=== PATIENT | female | born 1990 | race Caucasian/White ===

== ENCOUNTER 2018-07-05 19:22 | Inpatient (IN) | payer MEDICAID ==
[~2018-07-05] VITALS: Ht 160 cm; Wt 173.0 kg
[2018-07-05] MEDS ORDERED: ALBUTEROL 0.5% (NEB) 2.5 MG/0.5 ML AMP INH STA (19:49)
[2018-07-05] MEDS ORDERED: IBUPROFEN 600 MG TAB PO ONE (20:00)
--- NOTE | 2018-07-05 20:56 | ERD ---
ER Documentation Chief Complaint Chief Complaint SOB, USES O2-RAN OUT, FEVER, COUGH, CONGESTION, BODY ACHES HPI 28-year-old morbidly obese woman with a history of obstructive sleep apnea and home oxygen use presents with recent cough, tactile fever, nasal congestion, rhinorrhea, sore throat, body aches. She denies abdominal pain, no chest pain, no vomiting or diarrhea. Patient denies recent antibiotic use. ROS All systems reviewed and are negative except as per history of present illness. Allergies Allergies: Coded Allergies: Penicillins (Verified Allergy, Unknown, RASH, 05/11/08) PMhx/Soc Morbid obesity, CHF, obstructive sleep apnea, prediabetes FmHx Family History: diabetes Physical Exam Vitals Vital Signs Date Temp Pulse Resp B/P (MAP) Pulse Ox O2 O2 Flow FiO2 Time Delivery Rate 07/05/18 111 96 40 23:23 07/05/18 100.9 21:03 07/05/18 Nasal 3 20:49 Cannula 07/05/18 Nasal 2.0 20:19 Cannula 07/05/18 99.0 87 22 105/78 98 Nasal 2.0 20:19 (87) Cannula 07/05/18 2.0 20:09 07/05/18 108 22 91 Nasal 2.0 20:09 Cannula 07/05/18 101.6 121 26 127/61 91 19:27 (83) Physical Exam Const: No acute distress, febrile Head: Atraumatic Eyes: Normal Conjunctiva ENT: Normal External Ears, Nose and Mouth. Neck: Full range of motion. No meningismus. Resp: Poor breath sounds bilaterally, no wheezing or stridor Cardio: Regular rate and rhythm, no murmurs Abd: Soft, non tender, non distended. Skin: No petechiae or rashes Back: No midline or flank tenderness Ext: No cyanosis, or edema Neur: Awake and alert x3, no focal deficits or facial asymmetry Psych: Normal Mood and Affect Result Diagram: 07/05/18202907/05/182029 Results 24 hrs Laboratory Tests Test 07/05/18 19:49 07/05/18 20:30 07/05/18 20:41 Blood Gas Specimen Source Blood arterial Arterial Blood Date 07/05/2018 8:55:14 PM Drawn Arterial Blood pH 7.462 (Temp corrected) Arterial Blood pCO2 43.9 mmhg (Temp correct) Arterial Blood pO2 54.0 mmHG (Temp corrected) Arterial Blood HCO3 30.7 mmol/L Arterial Blood Base 6.1 mmol/L Excess Arterial Blood 88.6 mmHG Oxygen Saturation Haroon Test ACCEPTAB Arterial Blood Gas Right Radial Puncture Site Arterial 1.0 % Blood Carboxyhemoglobin Arterial Blood 0.2 % Methemoglobin Blood Gas A-a O2 108.3 mmHg Differential Oxyhemoglobin Percent 87.5 % Blood Gas Temperature 37.0 C Blood Gas Modality NASAL CANNULA FiO2 30.0 % Blood Gas Critical Value Garret PADILLA MD Read Back Blood Gas Notified Whom MG Blood Gas Notified Time 07/05/2018 9:03:00 PM White Blood Count 39.3 10^3/ul Red Blood Count 5.12 10^6/ul Hemoglobin 14.0 g/dl Hematocrit 43.6 % Mean Corpuscular Volume 85.2 fl Mean Corpuscular 27.3 pg Hemoglobin Mean Corpuscular 32.1 g/dl Hemoglobin Concent Red Cell Distribution 13.6 % Width Platelet Count 310 10^3/UL Mean Platelet Volume 10.3 fl Immature Granulocytes % 2.500 % Segmented Neutrophils 55 % % (Manual) Band Neutrophils % 32 % (Manual) Lymphocytes % (Manual) 2 % Reactive Lymphocytes 2 % % (Manual) Monocytes % (Manual) 7 % Basophils % (Manual) 1 % Myelocytes % (Manual) 1 % Nucleated Red Blood Cells 0.1 /100WBC % Immature Granulocytes # 1.000 10^3/ul Neutrophils # (Manual) 26.5 10^3/ul Band Neutrophils # 12.5 10^3/ul Lymphocytes (Manual) 0.7 10^3/ul Reactive Lymphocytes # 0.7 10^3/ul Monocytes # (Manual) 2.7 10^3/ul Basophils # (Manual) 0.3 10^3/ul Myelocytes # 0.3 10^3/ul Platelet Estimate NORMAL Giant Platelets 2 % Polychromasia 1+ Anisocytosis 1+ Microcytosis 1+ Ovalocytes 1+ Prothrombin Time 15.1 Sec Prothrombin Time Ratio 1.2 INR International 1.17 Normalized Ratio Activated 36.3 Sec Partial Thromboplast Time Sodium Level 137 mmol/L Potassium Level 3.6 mmol/L Chloride Level 96 mmol/L Carbon Dioxide Level 30 mmol/L Anion Gap 11 Blood Urea Nitrogen 8 mg/dl Creatinine 0.56 mg/dl Est Glomerular Filtrat > 60 mL/min Rate mL/min Glucose Level 138 mg/dl Calcium Level 8.1 mg/dl Total Bilirubin 0.5 mg/dl Direct Bilirubin 0.00 mg/dl Indirect Bilirubin 0.5 mg/dl Aspartate Amino 23 IU/L Transf (AST/SGOT) Alanine 9 IU/L Aminotransferase (ALT/SGP T) Alkaline Phosphatase 101 IU/L Troponin I 0.021 ng/ml Total Protein 8.5 g/dl Albumin 3.7 g/dl Globulin 4.80 g/dl Albumin/Globulin Ratio 0.77 Lipase < 10 U/L POC Venous Lactate 2.0 mmol/L Current Medications Medications Dose Sig/Sonal Start Time Status Last (Trade) Ordered Route PRN Stop Time Admin Dose Reason Admin Ibuprofen 600 mg ONCE ONCE 07/05/18 DC 07/05/18 (Motrin) PO 20:00 21:03 07/05/18 20:01 Albuterol 10 mg ONCE STAT 07/05/18 DC 07/05/18 (Proventil INH 19:49 20:09 0.5% (Neb)) 07/05/18 19:52 Ceftriaxone 50 ml @ ONCE ONCE 07/05/18 DC 07/05/18 Sodium 100 mls/hr IVPB 21:00 21:35 07/05/18 21:29 Azithromycin 250 ml @ ONCE ONCE 07/05/18 DC 07/05/18 250 mls/hr IVPB 21:00 22:18 07/05/18 21:59 Sodium 1,000 ml @ Q1H ONCE 07/05/18 DC 07/05/18 Chloride 1,000 mls/hr IV 21:00 21:03 07/05/18 21:59 Sodium 1,000 ml @ Q10H IV 07/05/18 UNV Chloride 100 mls/hr 23:22 07/06/18 23:00 IV Flush 3 ml PER 07/05/18 UNV (NS 3 ml) PROTOCOL IV 23:30 Ondansetron 4 mg Q6H PRN 07/05/18 UNV HCl (Zofran IV NAUSEA 23:30 Inj) AND/OR VOMITING 650 mg Q6H PRN 07/05/18 UNV Acetaminophen PO PAIN 23:30 (Tylenol LEVEL 1-3 OR Tab) FEVER 1 tab Q6H PRN 07/05/18 UNV Acetaminophen PO PAIN 23:30 / LEVEL 4-6 Hydrocodone Bitart (Timber (5/325)) 2 tab Q6H PRN 07/05/18 UNV Acetaminophen PO PAIN 23:30 / LEVEL 7-10 Hydrocodone Bitart (Timber (5/325)) Albuterol/ 3 ml Q2H RESP 07/05/18 UNV Ipratropium THERAPY PRN 23:30 (Duoneb) HHN SHORTNESS OF BREATH Procedures/MDM IV line was established patient was placed on cardiac rehab nurse rhythm strip revealed a sinus tachycardia at 120 bpm with upright P and T waves. Patient was febrile, blood and urine cultures have been ordered results are pending I will follow-up. EKG was performed, read by me revealed a sinus tachycardia at 113 bpm, right axis, narrow QRS complex, no concerning ST elevations or depressions noted. 1 view chest x-ray performed, read by me revealed a right middle and lower lobe infiltrate and congestion bilaterally and cardiomegaly, no pneumothorax, no air under the diaphragm. I administered 1 L normal saline IV, albuterol 10 mg via nebulizer, and ibuprofen 600 mg p.o. for fever. Patient has questionable history of congestive heart failure and is morbidly obese she will not be receiving the full 30 cc/kg IV fluids because I am concerned for precipitating pulmonary edema. Given the pneumonia I administered ceftriaxone 2 g IV and azithromycin 500 mg IV x1. CBC revealed leukocytosis of 39, electrolytes were unremarkable, liver function tests normal, lactic acid elevated at 2. ABG performed, read by me revealed a pH of 7.46, PCO2 44, PO2 54. Normal. Patient's infectious symptoms have not stabilized and the patient is at risk of rapid decompensation. The patient will be admitted for careful hydration, antibiotic therapy, and infectious source control. SEVERE SEPSIS CRITERIA: Infectious source: Pulmonary End organ damage indicated by: [Lactate > 2.0 mmol/L Hypotension (SBP < 90 or >40 mmHG drop or MAP < 65) Acute Resp Failure (sat < 92% w/o oxygen) SEPSIS MANAGEMENT Time of recognition of sepsis: Upon arrival. Time of recognition of severe sepsis: No severe sepsis at this time. Time of recognition of septic shock: No septic shock at this time. 3 HOUR BUNDLE Blood cultures x 2 before broad-spectrum antibiotics: Yes 30 ml/kg NS bolus completed Initial lactate 2.0 Repeat lactate pending SEPTIC SHOCK ASSESSMENT: No lactic acid > 4.0 No persistent hypotension (SBP < 90 or 40 mmHg drop, MAP < 65) despite 30 mL/kg IV fluid bolus VOLUME REASSESSMENT FOR SEPTIC SHOCK: Reevaluation Time: 2049 Temp 99.9, pulse 100 bpm, blood pressure 140/90, oxygen saturation 98% Heart regular rate & rhythm Lungs poor breath sounds bilaterally, crackles in both lung wong, no wheezing or stridor Skin warm & dry Cap Refill less than 2 seconds Peripheral pulses radially present PERSISTENT HYPOTENSION TREATMENT: Comfort care no Central line not Required Vasopressor started not required I considered further perfusion assessment with CVP measurement, SCVO2, bedside ultrasound volume assessment, passive leg raise, trial of further fluid bolus. And proceeded with 30 ml/kg fluid bolus of NSS, broad spectrum antibiotics, and admission. CRITICAL CARE: Critical care time 35 minutes, this was time separate from other billable procedures. Emergent fluid management while maintaining close respiratory support. Provision of immediate and broad-spectrum antibiotic therapy. Simultaneous assessment for possible sources in order to direct targeted therapy. Consideration for invasive and chemical support to prevent cardiopulmonary collapse. Critical care time is independent of procedures performed. Patient was placed on BiPAP Accepting Care Team: Current data and ongoing care discussed. Time: Time of admission Primary Provider: Hospitalist Consulting: Infectious disease Outstanding Data: none Departure Diagnosis: Primary Impression: Bilateral pneumonia Pneumonia type: due to unspecified organism Lung location: lower lobe of lung Qualified Codes: J18.1 - Lobar pneumonia, unspecified organism Additional Impressions: Sepsis Sepsis type: sepsis due to unspecified organism Qualified Codes: A41.9 - Sepsis, unspecified organism Obstructive sleep apnea Condition: Serious LANG PADILLA MD Jul 05, 2018 20:56
[2018-07-05] MEDS ORDERED: SOD CHLORIDE 0.9% 1,000 ML IV ONE (21:00)
[2018-07-05] MEDS ORDERED: CEFTRIAXONE 2 GM/50 ML (PMX) 50 ML IVPB ONE (21:00)
[2018-07-05] MEDS ORDERED: AZITHROMYCIN 500MG/NS (PMX) 250 ML IVPB ONE (21:00)
[2018-07-05] MEDS: SOD CHLORIDE 0.9% 1,000 ML IV SCH (23:22)
--- NOTE | 2018-07-05 23:24 | HP ---
Date/Time of Note Date/Time of Note DATE: 07/05/18 TIME: 23:24 Assessment/Plan Lines/Catheters IV [facility]ter [facility] (from [facility]): Saline Lock Assessment/Plan Assessment/Plan 1. Sepsis secondary to bilateral community-acquired pneumonia: Patient with significant leukocytosis with bandemia in the mitral cells -IV antibiotic -IV fluid -Follow-up blood culture and respiratory culture -Supplemental oxygen, bronchodilators -If leukocytosis does not improve or worsens with IV antibiotic, consider hematology consult 2. ALAN -Supplemental oxygen. CPAP/BiPAP as needed 3. Morbid obesity with a BMI of almost 68: Weight reduction advised HPI/ROS Admit Date/Time Admit Date/Time Hx of Present Illness This is a 28-year-old morbidly obese female with a BMI of 68 with a history of ALAN on home oxygen who presented to ER complaining of shortness of breath. Symptom has been progressively getting worse for the past few days. She also reported a cough. Denies chest pain. Patient uses oxygen at home, but she ran out recently. When presented to ER, she was found to be febrile with temperature of 1.6, WBC 39,000. Chest x-ray shows Bibasilar infiltrates concerning for multifocal pneumonia. Lactic acid only 1.3. ABG shows a pH of 7.4, PO2 of only 54. PMH/Family/Social Past Medical History Coded Allergies: Penicillins (Verified Allergy, Unknown, RASH, 05/11/08) Social History Smoking Status: Never smoker Exam/Review of Systems Vital Signs Vitals Vital Signs Date Temp Pulse Resp B/P (MAP) Pulse Ox O2 O2 Flow FiO2 Time Delivery Rate 07/05/18 100.9 21:03 07/05/18 Nasal 3 20:49 Cannula 07/05/18 87 22 105/78 98 20:19 (87) Results Result Diagram: 07/05/18202907/05/182029 Results 24 hrs Laboratory Tests Test 07/05/18 19:49 07/05/18 20:30 07/05/18 20:41 Blood Gas Specimen Blood arterial Source Arterial Blood Date 07/05/2018 8:55:14 PM Drawn Arterial Blood pH 7.462 H (Temp corrected) Arterial Blood pCO2 43.9 (Temp correct) Arterial Blood pO2 54.0 *L (Temp corrected) Arterial Blood HCO3 30.7 H Arterial Blood Base 6.1 H Excess Arterial Blood 88.6 L Oxygen Saturation Haroon Test ACCEPTAB Arterial Blood Gas Right Radial Puncture Site Arterial 1.0 Blood Carboxyhemoglobin Arterial Blood 0.2 Methemoglobin Blood Gas A-a O2 108.3 H Differential Oxyhemoglobin Percent 87.5 L Blood Gas Temperature 37.0 Blood Gas Modality NASAL CANNULA FiO2 30.0 Blood Gas Critical Value Garret PADILLA MD Read Back Blood Gas Notified Whom MG Blood Gas Notified Time 07/05/2018 9:03:00 PM White Blood Count 39.3 H Red Blood Count 5.12 Hemoglobin 14.0 Hematocrit 43.6 Mean Corpuscular Volume 85.2 Mean Corpuscular 27.3 L Hemoglobin Mean Corpuscular 32.1 Hemoglobin Concent Red Cell Distribution 13.6 Width Platelet Count 310 Mean Platelet Volume 10.3 Immature Granulocytes % 2.500 H Segmented Neutrophils 55 % (Manual) Band Neutrophils % 32 H (Manual) Lymphocytes % (Manual) 2 L Reactive Lymphocytes 2 H % (Manual) Monocytes % (Manual) 7 Basophils % (Manual) 1 Myelocytes % (Manual) 1 H Nucleated Red Blood Cells 0.1 H % Immature Granulocytes # 1.000 H Neutrophils # (Manual) 26.5 H Band Neutrophils # 12.5 H Lymphocytes (Manual) 0.7 L Reactive Lymphocytes # 0.7 H Monocytes # (Manual) 2.7 H Basophils # (Manual) 0.3 H Myelocytes # 0.3 H Platelet Estimate NORMAL Giant Platelets 2 H Polychromasia 1+ Anisocytosis 1+ Microcytosis 1+ Ovalocytes 1+ Prothrombin Time 15.1 H Prothrombin Time Ratio 1.2 INR International 1.17 Normalized Ratio Activated 36.3 H Partial Thromboplast Time Sodium Level 137 Potassium Level 3.6 Chloride Level 96 L Carbon Dioxide Level 30 Anion Gap 11 Blood Urea Nitrogen 8 Creatinine 0.56 Est Glomerular Filtrat > 60 Rate mL/min Glucose Level 138 Calcium Level 8.1 L Total Bilirubin 0.5 Direct Bilirubin 0.00 Indirect Bilirubin 0.5 Aspartate Amino 23 Transf (AST/SGOT) Alanine 9 L Aminotransferase (ALT/SGP T) Alkaline Phosphatase 101 Troponin I 0.021 Total Protein 8.5 H Albumin 3.7 Globulin 4.80 H Albumin/Globulin Ratio 0.77 Lipase < 10 L POC Venous Lactate 2.0 DARYA ADAMS MD Jul 05, 2018 23:24
[2018-07-05] MEDS ORDERED: NACL 0.9% 3 ML SYG IV SCH (23:30)
[2018-07-05] MEDS ORDERED: HYDROCODONE/APAP (5/325) TAB PO PRN ×2 (23:30)
[2018-07-05] MEDS ORDERED: ONDANSETRON 4 MG INJ IV PRN (23:30)
[2018-07-05] MEDS ORDERED: ALBUTEROL/IPRATROPIUM (NEB) 3 ML AMP HHN PRN (23:30)
[2018-07-06] VITALS (19 sets, daily range): BP systolic 97–128; BP diastolic 52–65; PULSE 81–110; RESP 18–24; Ht 160 cm; Wt 173.0 kg
--- NOTE | 2018-07-06 01:19 | NUR ---
NOTES: FOUND PT EATING SOLID. EDUCATED PT ON ASPIRATION. PT AGREED TO STOP EATING. PLACED PT ON NONREBREATHER MASK. WILL WAIT AT LATER TIME TO GO BACK ON BIPAP. RN BY BEDSIDE. SAT >92
--- NOTE | 2018-07-06 01:30 | NUR ---
RECEIVED THE PT FROM ER PT IS AAOX4 LUNGS SOUND WHEEZY AND CRACKLES NOTED PT ON NONBREATHING MASK O2 SAT98% pt vital sign stable no acute distress noted md order carry out continue monitor call light with inreach
--- NOTE | 2018-07-06 03:30 | NUR ---
MEDICATED WITH PAIN MEDS FOR BACK PAIN EFFECTIVE
[2018-07-06] MEDS ORDERED: VANCOMYCIN IV PER PHARMACY XX SCH (08:30)
[2018-07-06] MEDS ORDERED: MEROPENEM 500MG/50 ML (PMX) 50 ML IVPB SCH (09:00)
[2018-07-06] MEDS ORDERED: MEROPENEM 1 GM/50ML(PMX) 50 ML IVPB SCH ×2 (09:00→14:00)
--- NOTE | 2018-07-06 10:16 | NUR ---
RT. ATTEMPT TO SWITCH MASK , PT DIDNT WANT TO CHANGE MASK
--- NOTE | 2018-07-06 10:27 | NUR ---
VANCO PER RX PROTOCOL: DAY #1 S/O: 28 YO FEMALE W/ SEPSIS 2/2 BILATERAL CAP TMAX = 99.2 SCR/BUN = 1.1/14 WBC = 59.3 A/P: VANCO 1.75GM Q 12HR WITH TR LEVEL ON 4TH DOSE TO CHECK CLEARANCE. WILL CONTINUE TO FOLLOW.
[2018-07-06] MEDS: SOD CHLORIDE 0.9% 1,000 ML IV SCH ×2 (11:32→20:44)
[2018-07-06] MEDS: VANCOMYCIN 1.75 GM in SOD CHLORIDE 0.9% 500 ML IVPB SCH (12:49)
[2018-07-06] MEDS: MEROPENEM 1 GM/50ML(PMX) 50 ML IVPB SCH ×2 (16:16→22:01)
--- NOTE | 2018-07-06 17:12 | PN ---
Date/Time of Note Date/Time of Note DATE: 07/06/18 TIME: 17:06 Assessment/Plan VTE Prophylaxis Risk score (from Ns)>0 risk: 1 SCD applied (from Ns): No SCD contraindicated: low risk/ambulating Pharmacological prophylaxis: LMWH Lines/Catheters IV [facility] ([facility] Peripheral IV Assessment/Plan Hospital Course Assessment and plan 1. Acute hypoxic respiratory failure. mod stable titrate O2 2. Sirs/suspected sepsis due to pneumonia 3. Community-acquired pneumonia vs viral illness. Continue supportive care. Lymphocytic predominance, ID/pulmonary consult as needed; r/o influenza 4. Morbid obesity needs weight management outpatient assistance 5. ALAN/ OHS 6. Chronic respiratory failure on home O2? Subjective: Awake alert follows commands. Admitted with nonproductive cough earaches possible sore throat. Possible cold cough ill contacts. No recent travel calf pain. No pleurisy. Objective: Vital signs stable sinus rhythm/sinus tach Physical exam No pallor JVD appreciated. Thick neck Regular no murmur gallop Clear no tachypnea diminished at bases Bs dimin nt nd no rRG; obese Mild edema/no Homans Exam/Review of Systems Vital Signs Vitals Vital Signs Date Temp Pulse Resp B/P (MAP) Pulse Ox O2 O2 Flow FiO2 Time Delivery Rate 07/06/18 91 16:12 07/06/18 98.0 22 97/52 (67) 98 BIPAP 15:18 07/06/18 60 15:04 07/06/18 4.0 08:32 Intake and Output 07/05/18 07/05/18 07/06/18 1414:59 22:59 06:59 IntakeIntake Total 300 ml BalanceBalance 300 ml KAYLIE LARA MD Jul 06, 2018 17:12
[2018-07-06] MEDS ORDERED: GUAIFENESIN/DM 5ML CUP PO PRN (17:30)
[2018-07-06] MEDS ORDERED: CEFTRIAXONE 2 GM/50 ML (PMX) 50 ML IVPB SCH (17:30)
[2018-07-06] MEDS ORDERED: ALBUTEROL 0.083% (NEB) 2.5 MG/3 ML AMP HHN PRN (17:30)
[2018-07-06] MEDS: POTASSIUM CHLORIDE 20 MEQ POWDER FOR ORAL SOLN PO SCH (17:46)
[2018-07-06] MEDS: HYDROCODONE/APAP (10/325) TAB PO PRN ×2 (17:51→22:18)
[2018-07-06] MEDS ORDERED: MAGNESIUM SULFATE 4 GM/100 ML 100 ML IVPB ONE (18:00)
--- NOTE | 2018-07-06 18:48 | NUR ---
EOSS Patient is alert and oriented to person, place, and time. Shortness of breath on exertion. Patient was on bipap for most of the day and on nasal cannula 4-6L during meal times. Able to walk with 1 person stand-by assist with steady gait. IV antibiotics given. Pending on Magnesium 4gm to be delivered by pharmacy at this time. Will endorse to cnc machinist 2nd shift if it has not arrived during shift. Patient may use high flow rate nasal cannula per MD order. Patient will have CT angiogram tomorrow. No BM during shift. will endorse to night nurse to collect stool for c.diff. All needs attended to and met. Kept comfortable. Call light within reach. Addendum: 07/06/18 at 1859 by CAROLYN RUIZ RN infusing magnesium IVPB now
[2018-07-06] MEDS: OSELTAMIVIR 75 MG CAP PO SCH ×2 (20:43→22:01)
[2018-07-06] MEDS: AZITHROMYCIN 250 MG TAB PO SCH (20:44)
--- NOTE | 2018-07-06 23:06 | NUR ---
RN NOTES: PATIENT HAS NAUSEA AND VOMITING OF CLEAR SMALL FLUID APPARENTLY DUE TO GUTIÉRREZ FLAVORED JELL-O. EXPLAINED (AGAIN) THE POSSIBLE SIDE EFFECTS OF HER MEDICATIONS SUCH PAIN MEDS AND ANTIBIOTICS, VERBALIZED UNDERSTANDING. REFUSED TO PUT SIDE RAILS UP ON HER RIGHT SIDE, EXPLAINED REGARDING FALL PRECAUTION BUT SHE SAID SHE DOESN'T FEEL COMFORTABLE , AND THAT SHE NEEDS HER RIGHT FOOT DOWN. WILL CONTINE TO DO FREQUENT ROUNDING ON THIS PATIENT.
[2018-07-07] VITALS (34 sets, daily range): BP systolic 50–133; BP diastolic 23–89; PULSE 68–104; RESP 16–29
[2018-07-07] MEDS: VANCOMYCIN 1.75 GM in SOD CHLORIDE 0.9% 500 ML IVPB SCH ×2 (00:24→12:23)
[2018-07-07] MEDS: MEROPENEM 1 GM/50ML(PMX) 50 ML IVPB SCH ×3 (05:19→21:14)
--- NOTE | 2018-07-07 07:33 | NUR ---
EOSS: PATIENT REMAINED ON NRB , OXYGEN AT 8-10LPM, SATURATING 99-100%. DESATURATES WHEN OFF OXYGEN LOW 80%. PLACED ON BED ALARM. TWO SIDE RAILS UP.
[2018-07-07] MEDS: AZITHROMYCIN 250 MG TAB PO SCH (08:47)
[2018-07-07] MEDS: OSELTAMIVIR 75 MG CAP PO SCH ×2 (08:47→21:13)
[2018-07-07] MEDS: POTASSIUM CHLORIDE 20 MEQ POWDER FOR ORAL SOLN PO SCH (08:48)
[2018-07-07] MEDS ORDERED: ENOXAPARIN 40 MG/0.4 ML SYG SC SCH (09:00)
--- NOTE | 2018-07-07 10:50 | NUR ---
Notified by RT regarding abnormal ABG results. Relayed results to Anthony VENTURA. No orders received.
--- NOTE | 2018-07-07 12:37 | PN ---
Date/Time of Note Date/Time of Note DATE: 07/07/18 TIME: 12:35 Assessment/Plan VTE Prophylaxis Risk score (from Ns)>0 risk: 1 SCD applied (from Ns): No SCD contraindicated: other Pharmacological prophylaxis: LMWH Lines/Catheters IV Catheter Type (from [facility]): Peripheral IV Assessment/Plan Hospital Course SUBJECTIVE: The patient was somnolent throughout the day as per the RN. Currently on BiPAP. OBJECTIVE: Physical Exam General: Morbidly obese, 28 year-old female lying in bed. HEENT: Normocephalic, atraumatic. Eyes: Anicteric sclerae, conjunctivae clear. E NT: Nasal septum midline, oral mucosa is dry. Neck: Obese. Respiratory: Bilaterally diminished breath sounds. On BiPAP. Cardiovascular: S1, S2 heard. Regular rate and rhythm. Abdomen: Soft, nontender, and nondistended. Bowel sounds positive in all 4 quadrants. Genitourinary: Deferred. Extremities: No cyanosis, no clubbing. Peripheral pulses palpable. Neurologic: The patient is somnolent. Skin: Normal skin turgor. No skin rashes. Labs & Vitals per chart ASSESSMENT & PLAN 28-year-old female with comorbidities including morbid obesity with a BMI of almost 68, obstructive sleep apnea, and chronic hypoxia on home O2, who came to the emergency room with a chief complaint of dyspnea, congestion, fevers, cough, and body aches, who was found to have leukocytosis, febrile illness, and bandemia, who was admitted to inpatient setting for further treatment and evaluation. 1. Sepsis with leukocytosis, febrile illness, and bandemia, upon admission with suspected pneumonia. -Continue antimicrobials. -Send influenza A and B, urine studies, and stool studies. -Obtain ID consult. 2. Acute on chronic respiratory failure. -Hypoxic and hypercapnic. -Continue inhaled bronchodilators. -Noninvasive positive pressure ventilation as indicated. -Unable to obtain CT pulmonary angiogram or lung VQ scan because of morbid obesity. -The patient on therapeutic anticoagulation for possible underlying PE. -Obtain pulmonary consult. 3. Morbid obesity. -BMI almost 68 kg/m. 4. Fluids, electrolytes, and nutrition. -Regular diet if able to tolerate oral intake. 5. DVT prophylaxis. -On therapeutic Lovenox. 6. Plan. -Give a single dose of Narcan since the patient was getting high-dose of oral opioids. -Obtain 2D echocardiogram to the left ventricular ejection fraction and to evaluate for any pulmonary hypertension. -Repeat arterial blood gases. If ABG is not getting better, the patient needs to be transferred to intensive care unit for prolonged intubation mechanical ventilation. -Obtain ID and pulmonary consult. On 07/07/2018, the patient was moved to the intensive care unit because of worsening ABGs. The plan was to intubate the patient. The patient remained lethargic until the ER physician walked into the patient's room when she woke up and refused to be intubated. I had a conversation with the patient's sister Shira over the phone who agreed to come and talk to the patient. Shira visited the patient within 30 minutes and talked to the patient. Finally the patient agreed to be on a BiPAP therapy and have a repeat ABG done in another 2 hours and if the repeat ABG remains the same or get worse she agreed to be intubated. The patient was seen in collaboration with Dr. Oconnor. Result Diagram: 07/07/18 0540 07/07/18 0540 Results 24hrs Laboratory Tests Test 07/07/18 05:39 07/07/18 05:40 07/07/18 07:00 Serum HCG, Qualitative NEGATIVE White Blood Count 46.9 #H Red Blood Count 5.01 Hemoglobin 13.7 Hematocrit 44.8 Mean Corpuscular Volume 89.4 Mean Corpuscular 27.3 L Hemoglobin Mean Corpuscular 30.6 L Hemoglobin Concent Red Cell Distribution 14.1 Width Platelet Count 303 Mean Platelet Volume 10.8 H Immature Granulocytes % 2.900 H Neutrophils % Segmented Neutrophils 85 H % (Manual) Band Neutrophils % 6 H (Manual) Lymphocytes % Lymphocytes % (Manual) 4 L Monocytes % Monocytes % (Manual) 4 Eosinophils % Basophils % Basophils % (Manual) 1 Nucleated Red Blood 0.1 H Cells % Immature Granulocytes # 1.380 H Neutrophils # Neutrophils # (Manual) 41.2 H Band Neutrophils # 2.8 H Lymphocytes (Manual) 1.8 Lymphocytes # Monocytes # Monocytes # (Manual) 1.8 H Eosinophils # Basophils # Basophils # (Manual) 0.4 H Nucleated Red Blood Cells # Platelet Estimate NORMAL Polychromasia 1+ Sodium Level 142 Potassium Level 4.7 Chloride Level 101 Carbon Dioxide Level 35 H Anion Gap 6 Blood Urea Nitrogen 18 Creatinine 0.71 Est Glomerular Filtrat > 60 Rate mL/min Glucose Level 149 Calcium Level 8.0 L Magnesium Level 2.7 #H Total Bilirubin 0.0 L Direct Bilirubin 0.00 Indirect Bilirubin 0.0 Aspartate Amino 26 Transf (AST/SGOT) Alanine 11 L Aminotransferase (ALT/SG PT) Alkaline Phosphatase 143 H Troponin I < 0.012 Total Protein 8.7 H Albumin 3.6 Globulin 5.10 H Albumin/Globulin Ratio 0.70 Thyroid Stimulating 1.310 Hormone (TSH) Blood Gas Specimen Blood arterial Source Arterial Blood Date 07/07/2018 10:30:29 AM Drawn Arterial Blood pH 7.093 *L (Temp corrected) Arterial Blood pCO2 121.4 *H (Temp correct) Arterial Blood pO2 163.3 H (Temp corrected) Arterial Blood HCO3 36.3 H Arterial Blood Base 2.1 Excess Arterial Blood 98.8 H Oxygen Saturation Haroon Test ACCEPTAB Arterial Blood Gas Right Radial Puncture Site Arterial 0.4 Blood Carboxyhemoglobin Arterial Blood 0.3 Methemoglobin Blood Gas A-a O2 428.3 H Differential Oxyhemoglobin Percent 98.1 Blood Gas Temperature 37.0 Blood Gas Modality MASK - NRB FiO2 100.0 Blood Gas Critical Value J JOSEPH RN Read Back Blood Gas Notified Whom DT Blood Gas Notified Time 07/07/2018 10:46:25 AM Exam/Review of Systems Vital Signs Vitals Vital Signs Date Temp Pulse Resp B/P (MAP) Pulse Ox O2 O2 Flow FiO2 Time Delivery Rate 07/07/18 94 96 60 10:47 07/07/18 Non 8.0 08:30 Rebreather 07/07/18 97.5 19 129/89 07:43 (102) Intake and Output 07/06/18 07/06/18 07/07/18 1515:00 23:00 07:00 IntakeIntake Total 1010 ml 1250 ml OutputOutput Total 400 ml 20 ml BalanceBalance 610 ml 1230 ml Medications Medications Current Medications IV Flush (NS 3 ml) 3 ml PER PROTOCOL IV ; Start 07/05/18 at 23:30 Ondansetron HCl (Zofran Inj) 4 mg Q6H PRN IV NAUSEA AND/OR VOMITING Last administered on 07/06/18at 22:55; Admin Dose 4 MG; Start 07/05/18 at 23:30 Acetaminophen (Tylenol Tab) 650 mg Q6H PRN PO PAIN LEVEL 1-3 OR FEVER; Start 07/05/18 at 23:30 Albuterol/ Ipratropium (Duoneb) 3 ml Q2H RESP THERAPY PRN HHN SHORTNESS OF BREATH; Start 07/05/18 at 23:30 Vancomycin HCl (Vanco Iv Per Pharmacy) VANCOMYCIN PER PHARMACY PER PROTOCOL XX ; Start 07/06/18 at 08:30 Meropenem/Sodium Chloride 50 ml @ 100 mls/hr Q8 IVPB Last administered on 07/07/18at 05:19; Admin Dose 100 MLS/HR; Start 07/06/18 at 15:30 Vancomycin HCl 1.75 gm/Sodium Chloride 500 ml @ 125 mls/hr Q12H IVPB Last admi nistered on 07/07/18at 00:24; Admin Dose 125 MLS/HR; Start 07/06/18 at 12:00 Azithromycin (Zithromax) 500 mg DAILY PO Last administered on 07/07/18at 08:47; Admin Dose 500 MG; Start 07/06/18 at 21:00 Oseltamivir Phosphate (Tamiflu) 75 mg BID PO Last administered on 07/07/18at 08:47; Admin Dose 75 MG; Start 07/06/18 at 19:00; Stop 07/11/18 at 21:00 Guaifenesin/ Dextromethorphan (Robitussin Dm Liquid Cup) 10 ml Q4H PRN PO COUGH; Start 07/06/18 at 17:30 Potassium Chloride (Potassium Chloride Pwd/Soln) 40 meq DAILY PO Last administered on 07/06/18at 17:46; Admin Dose 40 MEQ; Start 07/06/18 at 17:30 Enoxaparin Sodium (Lovenox) 120 mg Q12 SC ; Start 07/07/18 at 18:15 Acetaminophen/ Hydrocodone Bitart (Racine (10/325)) 1 tab Q4H PRN PO MODERATE PAIN LEVEL 4-6 Last administered on 07/06/18at 22:18; Admin Dose 1 TAB; Start 07/06/18 at 18:00 KAREN KIMBALL NP Jul 07, 2018 12:37
[2018-07-07] MEDS ORDERED: NALOXONE (0.4 MG/ML) INJ IV ONE ×2 (13:00→13:30)
[2018-07-07] MEDS ORDERED: NALOXONE 2 MG SYG IV ONE (13:30)
--- NOTE | 2018-07-07 13:41 | NUR ---
Patient was noted to be sleepy and unresponsive to sternal rub. Notified Anthony RECEPTIONIST/TELEPHONE OPERATOR. Patient was given 2 doses of Narcan 0.4 mg IVP with very minimal improvement. Patient was noted with minimal groaning but was not responding to stimulus or sternal rub. Labs, ABG, and chest xray was drawn at bedside. Patient to be transferred to [place] [id number] in ICU.
--- NOTE | 2018-07-07 13:53 | NUR ---
Patient now transferred to ICU room 112.
--- NOTE | 2018-07-07 13:57 | NUR ---
Notified Shira (sister) regarding patient's change of condition. Informed her that patient is in room 112.
[2018-07-07] MEDS ORDERED: FUROSEMIDE 20 MG INJ IV ONE (14:00)
[2018-07-07] MEDS: ALBUTEROL/IPRATROPIUM (NEB) 3 ML AMP HHN SCH ×2 (14:00→20:20)
--- NOTE | 2018-07-07 15:00 | NUR ---
PT is AO x 3, moves all extremities, mild LE weakness. Pt refused to be intubated, teaching by ER , [employer] SUPERVISOR Zelalem, RN, RT provided. Pt's sister is at bed side. will repeat ABG at 1630. Pt refused pictures of back/LE to be taken.
--- NOTE | 2018-07-07 17:55 | RADRPT ---
Echocardiogram Report Patient Name: JAQUAN SANTIAGO Gender: Female Date: 1990 Study Date: 07-Jul-2018 Security And Compliance Analyst: Daryn Richardson [facility] Location: 112-A Ref. Physician: KAREN KIMBALL Quality: Technically Difficult Study Procedures: Transthoracic echocardiogram with complete 2D, M-Mode, and doppler examination. Indications: Evaluate Left Ventricular function. 2D/M Mode Doppler Measurement Value Normal Ranges Measurement Value Normal Ranges LVIDd 2D 4.5 3.5 - 5.6 cm AV Peak Fredrick 1.1 m/sec LVIDs 2D 3.5 2.1 - 4.1 cm AV Peak PG 5.0 mmHg LVPWd 2D 1.5 0.6 - 1.1 cm LVOT Peak Fredrick 0.5 m/sec IVSd 2D 1.9 0.6 - 1.1 cm LVOT Peak PG 1.0 mmHg AoR Diam 2D 3.0 2.0 - 3.7 cm MV E Peak Fredrick 0.7 m/sec LA/Ao 2D 1 0 - 1 MV A Peak Fredrick 0.5 m/sec LA Dimen 2D 4.1 2.3 - 4.0 cm MV E/A 1.4 MV Decel Time 173 msec Lat E` Fredrick 0.1 m/sec Lateral E/E` 10.1 Med E` Fredrick 0.2 m/sec MV E/A 1.4 TR Peak Fredrick 1.7 m/sec TR Peak PG 11.0 mmHg RVSP 21.0 mmHg Findings Left Ventricle: Normal left ventricular systolic function. Normal left ventricular cavity size. Severe concentric left ventricular hypertrophy. Ejection fraction is visually estimated at 60 %. Abnormal Diastolic Function. Right Ventricle: Normal right ventricular systolic function. Mild enlargement of right ventricle. Left Atrium: There is mild enlargement of left atrium. Right Atrium: There is mild enlargement of right atrium. Mitral Valve: Mitral valve is not well visualized. Mild mitral leaflet calcification. Mild mitral annular calcification. Trace mitral regurgitation. Aortic Valve: No significant aortic stenosis or insufficiency. Aortic valve not well visualized. Aortic cusps appear mildly calcified. No aortic regurgitation. Tricuspid Valve: Normal appearance of the tricuspid valve. Estimated peak PA systolic pressure 21 mmHg. There is trace tricuspid regurgitation. Pericardium: Trivial pericardial effusion. Aorta: Normal aortic root. IVC: Dilated inferior vena cava with poor inspiratory collapse consistent with elevated right atrial pressures. Conclusions Normal left ventricular systolic function. Normal left ventricular cavity size. Severe concentric left ventricular hypertrophy. Ejection fraction is visually estimated at 60 %. Abnormal Diastolic Function. Mitral valve is not well visualized. Mild mitral leaflet calcification. Mild mitral annular calcification. Trace mitral regurgitation. No significant aortic stenosis or insufficiency. Aortic valve not well visualized. Aortic cusps appear mildly calcified. No aortic regurgitation. Normal appearance of the tricuspid valve. Estimated peak PA systolic pressure 21 mmHg. There is trace tricuspid regurgitation. suboptimal study. Electronically Signed By: Michael Ramirez 07-Jul-2018 17:54:20 -0800 Patient Name: JAQUAN SANTIAGO Study Date: 07-Jul-2018 [id number]
[2018-07-07] MEDS ORDERED: DEXTROSE 5% 1,000 ML IV SCH (18:00)
--- NOTE | 2018-07-07 18:05 | NUR ---
Urine and influenza cultures sent.
[2018-07-07] MEDS: ENOXAPARIN 60 MG/0.6 ML SYG SC SCH (18:20)
--- NOTE | 2018-07-07 21:55 | NUR ---
MRSA SWAB COLLECTED. SPECIMEN TAKEN FROM LEFT NARE.
[2018-07-08] VITALS (24 sets, daily range): BP systolic 109–137; BP diastolic 60–95; PULSE 65–96; RESP 13–29
[2018-07-08] MEDS: VANCOMYCIN 1.75 GM in SOD CHLORIDE 0.9% 500 ML IVPB SCH (01:17)
[2018-07-08] MEDS: ACETAMINOPHEN 325 MG TAB PO PRN ×2 (03:01→14:54)
[2018-07-08] MEDS: MEROPENEM 1 GM/50ML(PMX) 50 ML IVPB SCH ×3 (06:21→23:21)
[2018-07-08] MEDS: AZITHROMYCIN 250 MG TAB PO SCH (08:34)
[2018-07-08] MEDS: ENOXAPARIN 60 MG/0.6 ML SYG SC SCH ×2 (08:37→21:55)
--- NOTE | 2018-07-08 08:59 | CONS ---
Date/Time of Note Date/Time of Note DATE: 07/08/18 TIME: 08:49 Assessment/Plan Assessment/Plan Chief Complaint/Hosp Course 1) diffuse pneumonia viral vs bacterial pt visits her mom often at a rehab place continue treatment for routine and health care associated infection due to her decrease in hearing will d/c vanco/azithro and start doxycycline for MRSA and atypical coverage continue with merrem/tamiflu get viral PCR of nares, initial flu ag were negative nasal for MRSA is pending check procalcitonin repeat blood gas is to be done soon 2) sleep apnea 3) leukocytosis Consultation Date/Type/Reason Admit Date/Time 07/05/18. Date of Consultation: Jul 08, 2018 Type of Consult ID Hx of Present Illness pt has home O2 and biPAP machine at home one week ago she developed sore throat, muscle aches, coryza then 2 days later she had a cough, SOB, and decrease in hearing and fevers No N, V, D the cough is non productive no dysuria, ESPOSITO, rash, joint pains She denies sick contacts but she visits her mom in a nearby rehab facility last hospitalization was this past summer at [facility] since her admission she has back pain from the bed she is very thirsty Past Medical History sleep apnea Medications Current Medications IV Flush (NS 3 ml) 3 ml PER PROTOCOL IV ; Start 07/05/18 at 23:30 Ondansetron HCl (Zofran Inj) 4 mg Q6H PRN IV NAUSEA AND/OR VOMITING Last administered on 07/06/18at 22:55; Admin Dose 4 MG; Start 07/05/18 at 23:30 Acetaminophen (Tylenol Tab) 650 mg Q6H PRN PO PAIN LEVEL 1-3 OR FEVER Last administered on 07/08/18at 03:01; Admin Dose 650 MG; Start 07/05/18 at 23:30 Albuterol/ Ipratropium (Duoneb) 3 ml Q2H RESP THERAPY PRN HHN SHORTNESS OF KEISHA ATH; Start 07/05/18 at 23:30 Vancomycin HCl (Vanco Iv Per Pharmacy) VANCOMYCIN PER PHARMACY PER PROTOCOL XX ; Start 07/06/18 at 08:30 Meropenem/Sodium Chloride 50 ml @ 100 mls/hr Q8 IVPB Last administered on 07/08/18at 06:21; Admin Dose 100 MLS/HR; Start 07/06/18 at 15:30 Vancomycin HCl 1.75 gm/Sodium Chloride 500 ml @ 125 mls/hr Q12H IVPB Last administered on 07/08/18at 01:17; Admin Dose 125 MLS/HR; Start 07/06/18 at 12:00 Azithromycin (Zithromax) 500 mg DAILY PO Last administered on 07/08/18at 08:34; Admin Dose 500 MG; Start 07/06/18 at 21:00 Oseltamivir Phosphate (Tamiflu) 75 mg BID PO Last administered on 07/07/18at 2 1:13; Admin Dose 75 MG; Start 07/06/18 at 19:00; Stop 07/11/18 at 21:00 Guaifenesin/ Dextromethorphan (Robitussin Dm Liquid Cup) 10 ml Q4H PRN PO COUGH; Start 07/06/18 at 17:30 Enoxaparin Sodium (Lovenox) 120 mg Q12 SC Last administered on 07/08/18 08:37; Admin Dose 120 MG; Start 07/07/18 at 18:15 Albuterol/ Ipratropium (Duoneb) 3 ml Q6HWA RESP THERAPY HHN Last administered on 07/07/18at 20:20; Admin Dose 3 ML; Start 07/07/18 at 14:00 Dextrose 1,000 ml @ 30 mls/hr Q24H IV Last administered on 07/07/18 18:21; Admin Dose 30 MLS/HR; Start 07/07/18 at 18:00 Allergies: Coded Allergies: Penicillins (Verified Allergy, Unknown, RASH, 07/07/18) Social History Smoking Status: Never smoker Exam/Review of Systems Vital Signs Vitals Vital Signs Date Temp Pulse Resp B/P (MAP) Pulse Ox O2 O2 Flow FiO2 Time Delivery Rate 07/08/18 65 08:00 07/08/18 98.0 07:37 07/08/18 15 117/71 87 BIPAP 06:00 (86) 07/08/18 45 05:59 07/07/18 15.0 18:25 Intake and Output 07/07/18 07/07/18 07/08/18 1515:00 23:00 07:00 IntakeIntake Total 125 ml 560 ml 210 ml OutputOutput Total 1020 ml 585 ml BalanceBalance 125 ml -460 ml -375 ml Exam Constitutional: alert, oriented Eyes: nl sclera Respiratory: clear to auscultation Cardiovascular: regular rate and rhythm Gastrointestinal: soft, non-tender Extremities: other Neurological: other (non focal) Medications Medications Current Medications IV Flush (NS 3 ml) 3 ml PER PROTOCOL IV ; Start 07/05/18 at 23:30 Ondansetron HCl (Zofran Inj) 4 mg Q6H PRN IV NAUSEA AND/OR VOMITING Last administered on 07/06/18at 22:55; Admin Dose 4 MG; Start 07/05/18 at 23:30 Acetaminophen (Tylenol Tab) 650 mg Q6H PRN PO PAIN LEVEL 1-3 OR FEVER Last administered on 07/08/18at 03:01; Admin Dose 650 MG; Start 07/05/18 at 23:30 Albuterol/ Ipratropium (Duoneb) 3 ml Q2H RESP THERAPY PRN HHN SHORTNESS OF BREATH; Start 07/05/18 at 23:30 Vancomycin HCl (Vanco Iv Per Pharmacy) VANCOMYCIN PER PHARMACY PER PROTOCOL XX ; Start 07/06/18 at 08:30 Meropenem/Sodium Chloride 50 ml @ 100 mls/hr Q8 IVPB Last administered on 07/08/18at 06:21; Admin Dose 100 MLS/HR; Start 07/06/18 at 15:30 Vancomycin HCl 1.75 gm/Sodium Chloride 500 ml @ 125 mls/hr Q12H IVPB Last administered on 07/08/18at 01:17; Admin Dose 125 MLS/HR; Start 07/06/18 at 12:00 Azithromycin (Zithromax) 500 mg DAILY PO Last administered on 07/08/18at 08:34; Admin Dose 500 MG; Start 07/06/18 at 21:00 Oseltamivir Phosphate (Tamiflu) 75 mg BID PO Last administered on 07/07/18at 21:13; Admin Dose 75 MG; Start 07/06/18 at 19:00; Stop 07/11/18 at 21:00 Guaifenesin/ Dextromethorphan (Robitussin Dm Liquid Cup) 10 ml Q4H PRN PO COUGH; Start 07/06/18 at 17:30 Enoxaparin Sodium (Lovenox) 120 mg Q12 SC Last administered on 07/08/18at 08:37; Admin Dose 120 MG; Start 07/07/18 at 18:15 Albuterol/ Ipratropium (Duoneb) 3 ml Q6HWA RESP THERAPY HHN Last administered on 07/07/18 20:20; Admin Dose 3 ML; Start 07/07/18 at 14:00 Dextrose 1,000 ml @ 30 mls/hr Q24H IV Last administered on 07/07/18 18:21; Admin Dose 30 MLS/HR; Start 07/07/18 at 18:00 RICHMOND GONCALVES MD Jul 08, 2018 08:59
[2018-07-08] MEDS: ALBUTEROL/IPRATROPIUM (NEB) 3 ML AMP HHN SCH ×3 (09:00→20:00)
--- NOTE | 2018-07-08 09:07 | PN ---
Date/Time of Note Date/Time of Note DATE: 07/08/18 TIME: 09:05 Assessment/Plan VTE Prophylaxis Risk score (from Ns)>0 risk: 1 SCD applied (from Ns): No SCD contraindicated: other Pharmacological prophylaxis: LMWH Lines/Catheters IV Catheter Type ([facility]): Peripheral IV Urinary Cath still in place: Yes Reason Cath still needed: other (indicate) Assessment/Plan Hospital Course SUBJECTIVE: Currently on BiPAP. The patient remained on BiPAP overnight. OBJECTIVE: Physical Exam General: Morbidly obese, 28 year-old female lying in bed. HEENT: Normocephalic, atraumatic. Eyes: Anicteric sclerae, conjunctivae clear. ENT: Nasal septum midline, oral mucosa is dry. Neck: Obese. Respiratory: Bilaterally diminished breath sounds. On BiPAP. Cardiovascular: S1, S2 heard. Regular rate and rhythm. Abdomen: Soft, nontender, and nondistended. Bowel sounds positive in all 4 quadrants. Genitourinary: Deferred. Extremities: No cyanosis, no clubbing. Peripheral pulses palpable. Neurologic: The patient is somnolent. Skin: Normal skin turgor. No skin rashes. Labs & Vitals per chart ASSESSMENT & PLAN 28-year-old female with comorbidities including morbid obesity with a BMI of almost 68, obstructive sleep apnea, and chronic hypoxia on home O2, who came to the emergency room with a chief complaint of dyspnea, congestion, fevers, cough, and body aches, who was found to have leukocytosis, febrile illness, and bandemia, who was admitted to inpatient setting for further treatment and evaluation. The patient was initially monitored on telemetry floor. On 07/07/2018, the patient's condition deteriorated related with worsening CO2 retention the patient was transferred to intensive care unit for intubation. However, the patient refused intubation. Nevertheless, the patient responded well to noninvasive positive pressure ventilation. 1. Sepsis with leukocytosis, febrile illness, and bandemia, upon admission with pneumonia. -Continue antimicrobials. -Pancultures negative so far. -ID following. 2. Acute on chronic respiratory failure. -Hypoxic and hypercapnic. -Continue inhaled bronchodilators. -Noninvasive positive pressure ventilation as indicated. -Unable to obtain CT pulmonary angiogram or lung VQ scan because of morbid obesity. -The patient on therapeutic anticoagulation for possible underlying PE. -Pulmonary consult. 3. Diastolic heart failure. -Continue spot diuretics. 4. Morbid obesity. -BMI almost 68 kg/m. 5. Fluids, electrolytes, and nutrition. -Regular diet if able to tolerate oral intake. 6. DVT prophylaxis. -On therapeutic Lovenox. 7. Plan. -Continue antimicrobials as per ID. -Wean off noninvasive positive pressure ventilation as tolerated. -Await clinical improvement. The patient was seen in collaboration with Dr. Oconnor. Critical care time: 35 minutes. Result Diagram: 07/08/18 0453 07/08/18 0453 Results 24hrs Laboratory Tests Test 07/07/18 13:00 07/07/18 13:30 07/07/18 14:45 07/07/18 16:00 Blood Gas Blood arterial Blood Specimen arterial Source Arterial Blood 07/07/2018 1:35 07/07/2018 5:1 Date Drawn :55 PM 0:07 PM Arterial Blood 7.083 *L 7.264 *L pH (Temp corrected ) Arterial Blood 142.1 *H 74.9 H pCO2 (Temp correct) Arterial Blood 105.4 H 89.8 pO2 (Temp corrected ) Arterial Blood 41.5 *H 33.2 H HCO3 Arterial Blood 6.1 H 3.8 H Base Excess Arterial Blood 96.8 96.8 Oxygen Saturati on [place] Test ACCEPTAB ACCEPTAB Arterial Blood Left Radial Right Radial Gas Puncture Site Arterial 0.5 0.7 Blood Carboxyhe moglobin Arterial Blood 0.3 0.2 Methemoglobin Blood Gas A-a 166.1 H 145.9 H O2 Differential Oxyhemoglobin 96.0 95.9 Percent Blood Gas 37.0 37.0 Temperature Blood Gas 20.0 20.0 Respiration Rate Blood Gas 24 22 Actual Respiration Rat e Blood Gas MASK - BIPAP MASK - BIPAP Modality FiO2 60.0 45.0 Blood Gas Tidal 260.0 340.0 Volume Blood Gas KAREN GRAJEDA RN Critical Value Read Back Blood Gas [facility] Notified Whom Blood Gas 07/07/2018 1:41 07/07/2018 5:2 Notified Time :57 PM 1:35 PM D-Dimer 5350.74 H D-Dimer Comment Sodium Level 143 Potassium Level 5.1 Chloride Level 100 Carbon Dioxide 37 H Level Anion Gap 6 Blood Urea 17 Nitrogen Creatinine 0.58 Est Glomerular > 60 Filtrat Rate mL/min Glucose Level 93 # Calcium Level 8.0 L Magnesium Level 2.7 H Bedside Glucose 76 Blood Gas 20/6 IPAP/EPAP Ratio Test 07/07/18 17:00 07/07/18 17:56 07/07/18 23:07 07/08/18 04:53 Urine Color YELLOW Urine Clarity CLOUDY A Urine pH 5.0 Urine Specific 1.010 [place] Urine Ketones NEGATIVE Urine Nitrite NEGATIVE Urine Bilirubin NEGATIVE Urine NEGATIVE Urobilinogen Urine Leukocyte NEGATIVE Esterase Urine 2 Microscopic RBC Urine 3 Microscopic WBC Urine Squamous FEW Epithelial Cell s Urine NEGATIVE Hemoglobin Urine Glucose NEGATIVE Urine Total NEGATIVE Protein Bedside Glucose 83 Vancomycin 12.2 Level Trough White Blood 22.6 #H Count Red Blood Count 4.39 Hemoglobin 11.7 L Hematocrit 39.3 Mean 89.5 Corpuscular Volume Mean 26.7 L Corpuscular Hemoglobin Mean 29.8 L Corpuscular Hemoglobin Conc ent Red Cell 14.0 Distribution Width Platelet Count 258 Mean Platelet 10.6 H Volume Immature 1.000 H Granulocytes % Neutrophils % 85.2 H Lymphocytes % 8.6 L Monocytes % 4.6 Eosinophils % 0.3 Basophils % 0.3 Nucleated Red 0.0 Blood Cells % Immature 0.230 H Granulocytes # Neutrophils # 19.3 H Lymphocytes # 1.9 Monocytes # 1.0 H Eosinophils # 0.1 Basophils # 0.1 Nucleated Red 0.0 Blood Cells # Sodium Level 144 Potassium Level 4.4 Chloride Level 101 Carbon Dioxide 36 H Level Anion Gap 7 Blood Urea 16 Nitrogen Creatinine 0.56 Est Glomerular > 60 Filtrat Rate mL/min Glucose Level 103 Calcium Level 8.1 L Phosphorus 3.3 Level Magnesium Level 2.4 Total Bilirubin 0.0 L Direct 0.00 Bilirubin Indirect 0.0 Bilirubin Aspartate Amino 18 Transf (AST/SGO T) Alanine 11 L Aminotransferas e (ALT/SGPT) Alkaline 123 H Phosphatase Total Protein 7.3 # Albumin 3.3 Globulin 4.00 H Albumin/Globuli 0.82 n Ratio Exam/Review of Systems Vital Signs Vitals Vital Signs Date Temp Pulse Resp B/P (MAP) Pulse Ox O2 O2 Flow FiO2 Time Delivery Rate 07/08/18 65 08:00 07/08/18 98.0 07:37 07/08/18 15 117/71 87 BIPAP 06:00 (86) 07/08/18 45 05:59 07/07/18 15.0 18:25 Intake and Output 07/07/18 07/07/18 07/08/18 1515:00 23:00 07:00 IntakeIntake Total 125 ml 560 ml 210 ml OutputOutput Total 1020 ml 585 ml BalanceBalance 125 ml -460 ml -375 ml Medications Medications Current Medications IV Flush (NS 3 ml) 3 ml PER PROTOCOL IV ; Start 07/05/18 at 23:30 Ondansetron HCl (Zofran Inj) 4 mg Q6H PRN IV NAUSEA AND/OR VOMITING Last administered on 07/06/18at 22:55; Admin Dose 4 MG; Start 07/05/18 at 23:30 Acetaminophen (Tylenol Tab) 650 mg Q6H PRN PO PAIN LEVEL 1-3 OR FEVER Last a dministered on 07/08/18at 03:01; Admin Dose 650 MG; Start 07/05/18 at 23:30 Albuterol/ Ipratropium (Duoneb) 3 ml Q2H RESP THERAPY PRN HHN SHORTNESS OF BREATH; Start 07/05/18 at 23:30 Meropenem/Sodium Chloride 50 ml @ 100 mls/hr Q8 IVPB Last administered on 07/08/18at 06:21; Admin Dose 100 MLS/HR; Start 07/06/18 at 15:30 Oseltamivir Phosphate (Tamiflu) 75 mg BID PO Last administered on 07/07/18at 21:13; Admin Dose 75 MG; Start 07/06/18 at 19:00; Stop 07/11/18 at 21:00 Guaifenesin/ Dextromethorphan (Robitussin Dm Liquid Cup) 10 ml Q4H PRN PO COUGH; Start 07/06/18 at 17:30 Enoxaparin Sodium (Lovenox) 120 mg Q12 SC Last administered on 07/08/18at 08:37; Admin Dose 120 MG; Start 07/07/18 at 18:15 Albuterol/ Ipratropium (Duoneb) 3 ml Q6HWA RESP THERAPY HHN Last administered on 07/07/18at 20:20; Admin Dose 3 ML; Start 07/07/18 at 14:00 Dextrose 1,000 ml @ 30 mls/hr Q24H IV Last administered on 07/07/18at 18:21; Admin Dose 30 MLS/HR; Start 07/07/18 at 18:00 Doxycycline Hyclate 100 mg/ Sodium Chloride 250 ml @ 250 mls/hr Q12 IVPB ; Start 07/08/18 at 09:00; Status UNV KAREN KIMBALL NP Jul 08, 2018 09:07
--- NOTE | 2018-07-08 09:07 | CONS ---
Date/Time of Note Date/Time of Note DATE: 07/08/18 TIME: 09:03 Assessment/Plan Assessment/Plan Additional Assessment/Plan Chest x-ray showing cardiomegaly with changes of mild pulmonary edema. ABG showing hypercapnic respiratory failure. With hypoxemia. Assessment recommendations; 1. Patient admitted with shortness of breath likely due to bilateral pneumonia with significant leukocytosis possibly post viral in etiology with possibly an active viral component as well. 2. Underlying sleep apnea 3. Morbid obesity. 4. Right lower extremity varicose veins. Ultrasound negative for any DVT. Administer Lasix 40 mg x1. Continue BiPAP at current settings. Continue current antimicrobial as well as antiviral regimen. Obtain follow-up chest x- ray 24 hours. DVT and GI prophylaxis per protocol. Consultation Date/Type/Reason Admit Date/Time 07/05/18. Date of Consultation: Jul 08, 2018 Type of Consult Pulmonary/critical care History of presenting illness; patient is a 28-year-old woman who came into the hospital yesterday with a few days history of worsening shortness of breath with coughing. Patient denies any sputum production any wheezing any fever chills. Upon evaluation patient was found to be in hypercapnic and hypoxemic respiratory failure as well as CHF exacerbation. Patient has been admitted to ICU and started on BiPAP with improvement in symptoms. Past medical history; 1. Likely underlying sleep apnea due to morbid obesity. Medications; reviewed. Allergies; penicillin. Social history; no history of smoking alcohol or drug abuse. Family history; noncontributory. Occupational history; patient is on disability. Review of systems; denies any headache, seizures, sinus symptoms. Any chest pain. Complains of scant cough without any wheezing. Complains of shortness of breath. Denies any high fever, chills, body aches or myalgias. Complains of chronic dyspnea on exertion. Denies any edema. Any abdominal pain, nausea vomiting, constipation, diarrhea or melena. General exam; young woman, morbidly obese, awake and alert. Currently in no distress. Reason for Consultation H HEENT exam; supple neck, JVD difficult to see because of short neck. Patient has fair dentition. No neck masses. No thyromegaly. Pupils are midsize and reactive to light. Chest exam; diminished breath sounds throughout. S1-S2 audible, no murmurs. Regular rhythm. Abdomen exam; soft, protuberant. Organomegaly difficult to assess. Bowel sounds audible. Extremity exam; no edema or clubbing. Patient does have chronic right lower extremity skin changes. With varicose veins. [employer] exam; no focal deficit. Past Medical History Medications Current Medications IV Flush (NS 3 ml) 3 ml PER PROTOCOL IV ; Start 07/05/18 at 23:30 Ondansetron HCl (Zofran Inj) 4 mg Q6H PRN IV NAUSEA AND/OR VOMITING Last administered on 07/06/18at 22:55; Admin Dose 4 MG; Start 07/05/18 at 23:30 Acetaminophen (Tylenol Tab) 650 mg Q6H PRN PO PAIN LEVEL 1-3 OR FEVER Last administered on 07/08/18at 03:01; Admin Dose 650 MG; Start 07/05/18 at 23:30 Albuterol/ Ipratropium (Duoneb) 3 ml Q2H RESP THERAPY PRN HHN SHORTNESS OF BREATH; Start 07/05/18 at 23:30 Meropenem/Sodium Chloride 50 ml @ 100 mls/hr Q8 IVPB Last administered on 07/08/18at 06:21; Admin Dose 100 MLS/HR; Start 07/06/18 at 15:30 Oseltamivir Phosphate (Tamiflu) 75 mg BID PO Last administered on 07/07/18at 21:13; Admin Dose 75 MG; Start 07/06/18 at 19:00; Stop 07/11/18 at 21:00 Guaifenesin/ Dextromethorphan (Robitussin Dm Liquid Cup) 10 ml Q4H PRN PO COUGH; Start 07/06/18 at 17:30 Enoxaparin Sodium (Lovenox) 120 mg Q12 SC Last administered on 07/08/18at 08:37; Admin Dose 120 MG; Start 07/07/18 at 18:15 Albuterol/ Ipratropium (Duoneb) 3 ml Q6HWA RESP THERAPY HHN Last administered on 07/07/18at 20:20; Admin Dose 3 ML; Start 07/07/18 at 14:00 Dextrose 1,000 ml @ 30 mls/hr Q24H IV Last administered on 07/07/18 18:21; Admin Dose 30 MLS/HR; Start 07/07/18 at 18:00 Doxycycline Hyclate 100 mg/ Sodium Chloride 250 ml @ 250 mls/hr Q12 IVPB ; Start 07/08/18 at 09:00 Allergies: Coded Allergies: Penicillins (Verified Allergy, Unknown, RASH, 07/07/18) Social History Smoking Status: Never smoker Exam/Review of Systems Vital Signs Vitals Vital Signs Date Temp Pulse Resp B/P (MAP) Pulse Ox O2 O2 Flow FiO2 Time Delivery Rate 07/08/18 65 08:00 07/08/18 98.0 07:37 07/08/18 15 117/71 87 BIPAP 06:00 (86) 07/08/18 45 05:59 07/07/18 15.0 18:25 Intake and Output 07/07/18 07/07/18 07/08/18 1515:00 23:00 07:00 IntakeIntake Total 125 ml 560 ml 210 ml OutputOutput Total 1020 ml 585 ml BalanceBalance 125 ml -460 ml -375 ml Medications Medications Current Medications IV Flush (NS 3 ml) 3 ml PER PROTOCOL IV ; Start 07/05/18 at 23:30 Ondansetron HCl (Zofran Inj) 4 mg Q6H PRN IV NAUSEA AND/OR VOMITING Last administered on 07/06/18at 22:55; Admin Dose 4 MG; Start 07/05/18 at 23:30 Acetaminophen (Tylenol Tab) 650 mg Q6H PRN PO PAIN LEVEL 1-3 OR FEVER Last administered on 07/08/18at 03:01; Admin Dose 650 MG; Start 07/05/18 at 23:30 Albuterol/ Ipratropium (Duoneb) 3 ml Q2H RESP THERAPY PRN HHN SHORTNESS OF BREATH; Start 07/05/18 at 23:30 Meropenem/Sodium Chloride 50 ml @ 100 mls/hr Q8 IVPB Last administered on 07/08/18at 06:21; Admin Dose 100 MLS/HR; Start 07/06/18 at 15:30 Oseltamivir Phosphate (Tamiflu) 75 mg BID PO Last administered on 07/07/18at 21:13; Admin Dose 75 MG; Start 07/06/18 at 19:00; Stop 07/11/18 at 21:00 Guaifenesin/ Dextromethorphan (Robitussin Dm Liquid Cup) 10 ml Q4H PRN PO COUGH; Start 07/06/18 at 17:30 Enoxaparin Sodium (Lovenox) 120 mg Q12 SC Last administered on 07/08/18at 08:37; Admin Dose 120 MG; Start 07/07/18 at 18:15 Albuterol/ Ipratropium (Duoneb) 3 ml Q6HWA RESP THERAPY HHN Last administered on 07/07/18at 20:20; Admin Dose 3 ML; Start 07/07/18 at 14:00 Dextrose 1,000 ml @ 30 mls/hr Q24H IV Last administered on 07/07/18at 18:21; Admin Dose 30 MLS/HR; Start 07/07/18 at 18:00 Doxycycline Hyclate 100 mg/ Sodium Chloride 250 ml @ 250 mls/hr Q12 IVPB ; Start 07/08/18 at 09:00 ROGELIO FOSS Jul 08, 2018 09:07
[2018-07-08] MEDS: OSELTAMIVIR 75 MG CAP PO SCH ×2 (09:26→20:52)
[2018-07-08] MEDS ORDERED: FUROSEMIDE 40 MG INJ IV ONE (09:30)
[2018-07-08] MEDS: DOXYCYCLINE 100 MG in SOD CHLORIDE 0.9% 250 ML IVPB SCH ×2 (10:09→20:54)
--- NOTE | 2018-07-08 16:56 | NUR ---
Ct angiogram to be done on 07.10.[address] scan repayment. Confirmed with INSPECTOR TESTER SORTER Anthony and CT scan Julito. Pt to be transferred to telemetry room 624. Detailed report given to teletype installer, awaiting the transport. Family and patient were updated regarding plan of care by RN during the day. Message left to Shira regarding transfer to tele. Addendum: 07/08/18 at 1905 by AINSLEY LEE RN correction: Ct angiogram to be done on 07.10.[address] scan repairmen
--- NOTE | 2018-07-08 18:10 | NUR ---
EOSS: Pt was transferred from ICU around 1800. Pt is 28y old Female. A/O x4, VS are WNL, Pt is on 4 L NC, saturating above 96%. does not complain of SOB, pain or discomfort. Pt is on contact isolation to R/O C dif. family is at the bedside. pictures are taken upon transfer. Will monitor. and endorse the care to overnight cashier nurse.
[2018-07-09] VITALS (13 sets, daily range): BP systolic 122–163; BP diastolic 66–93; PULSE 81–96; RESP 19–20
[2018-07-09] MEDS: MEROPENEM 1 GM/50ML(PMX) 50 ML IVPB SCH ×3 (05:57→21:18)
--- NOTE | 2018-07-09 06:58 | NUR ---
EOSS: Pt. remained stable during shift. Pt. remained on BIPAP for 5 hours. Switched to Nasal Cannula 4 L afterwards. Pt. saturating 96% with 4L. No SOB noted during shift. Patient constantly asked for apple and orange juice during shift. Pt. complained of room being so hot. Air adjusted as needed. Bed in lowest position. Bed alarm on. All needs meet. Will continue to monitor and report care to dayshift.
--- NOTE | 2018-07-09 07:06 | CONS ---
Date/Time of Note Date/Time of Note DATE: 07/09/18 TIME: 07:00 Assessment/Plan Assessment/Plan Chief Complaint/Hosp Course 1) diffuse pneumonia viral vs bacterial pt visits her mom often at a rehab place continue treatment for routine and health care associated infection due to her decrease in hearing will d/c vanco/azithro and start doxycycline for MRSA and atypical coverage continue with merrem/tamiflu get viral PCR of nares, initial flu ag were negative nasal for MRSA is pending check procalcitonin repeat blood gas is to be done soon 07/09 - much improved oxygenation continue present meds of merrem/doxy/tamiflu change doxy to po get sinus xray no otoscopy on the floor, I would recommend hospitalist look at eardrum to see if she has cerumenal impacation to explain bilateral decrease in hearing if pt continues to do well will change merrem to oral omnicef tomorrow 2) sleep apnea 3) leukocytosis 07/09 - much improved 4) mild thrush start nystatin Consultation Date/Type/Reason Admit Date/Time Jul 05, 2018 at 21:10 Initial Consult Date 07/08/18 Type of Consult ID [id number] HR Interval Summary Free Text/Dictation pt is more awake today she was on room air when I saw here and her O2 sat wsa 83% put back on NC at 4L and her sat was at 91% she denies SOB, her cough is better no N, V, D Exam/Review of Systems Vital Signs Vitals Vital Signs Date Temp Pulse Resp B/P (MAP) Pulse Ox O2 O2 Flow FiO2 Time Delivery Rate 07/09/18 5.0 40 05:28 07/09/18 89 04:00 07/09/18 98.2 19 131/71 92 Nasal 03:45 (91) Cannula Intake and Output 07/08/18 07/08/18 07/09/18 1515:00 23:00 07:00 IntakeIntake Total 2440 ml 170 ml 750 ml OutputOutput Total 1800 ml 600 ml 1100 ml BalanceBalance 640 ml -430 ml -350 ml Exam Constitutional: alert, oriented Eyes: nl sclera ENMT: other (slight white coating) Respiratory: clear to auscultation, other (very distant BS) Cardiovascular: regular rate and rhythm Gastrointestinal: soft Medications Medications Current Medications IV Flush (NS 3 ml) 3 ml PER PROTOCOL IV ; Start 07/05/18 at 23:30 Ondansetron HCl (Zofran Inj) 4 mg Q6H PRN IV NAUSEA AND/OR VOMITING Last administered on 07/06/18 22:55; Admin Dose 4 MG; Start 07/05/18 at 23:30 Acetaminophen (Tylenol Tab) 650 mg Q6H PRN PO PAIN LEVEL 1-3 OR FEVER Last administered on 07/08/18 14:54; Admin Dose 650 MG; Start 07/05/18 at 23:30 Albuterol/ Ipratropium (Duoneb) 3 ml Q2H RESP THERAPY PRN HHN SHORTNESS OF BREATH; Start 07/05/18 at 23:30 Meropenem/Sodium Chloride 50 ml @ 100 mls/hr Q8 IVPB Last administered on 07/09/18 05:57; Admin Dose 100 MLS/HR; Start 07/06/18 at 15:30 Oseltamivir Phosphate (Tamiflu) 75 mg BID PO Last administered on 07/08/18 20:52; Admin Dose 75 MG; Start 07/06/18 at 19:00; Stop 07/11/18 at 21:00 Guaifenesin/ Dextromethorphan (Robitussin Dm Liquid Cup) 10 ml Q4H PRN PO COUGH Last administered on 07/08/18 14:53; Admin Dose 10 ML; Start 07/06/18 at 17:30 Enoxaparin Sodium (Lovenox) 120 mg Q12 SC Last administered on 07/08/18 21:55; Admin Dose 120 MG; Start 07/07/18 at 18:15 Albuterol/ Ipratropium (Duoneb) 3 ml Q6HWA RESP THERAPY HHN Last administered on 07/08/18 14:49; Admin Dose 3 ML; Start 07/07/18 at 14:00 Doxycycline Hyclate 100 mg/ Sodium Chloride 250 ml @ 250 mls/hr Q12 IVPB Last administered on 07/08/18 20:54; Admin Dose 250 MLS/HR; Start 07/08/18 at 09:00 RICHMOND GONCALVES MD Jul 09, 2018 07:06
[2018-07-09] MEDS: ALBUTEROL/IPRATROPIUM (NEB) 3 ML AMP HHN SCH ×3 (08:47→20:37)
[2018-07-09] MEDS: NYSTATIN SUSP 5 ML CUP PO SCH ×4 (09:22→21:18)
[2018-07-09] MEDS: OSELTAMIVIR 75 MG CAP PO SCH ×2 (09:22→21:18)
[2018-07-09] MEDS: DOXYCYCLINE 100 MG TAB PO SCH ×2 (09:22→21:18)
[2018-07-09] MEDS: ENOXAPARIN 60 MG/0.6 ML SYG SC SCH ×2 (09:28→22:29)
--- NOTE | 2018-07-09 09:54 | CONS ---
Date/Time of Note Date/Time of Note DATE: 07/09/18 TIME: 09:51 Assessment/Plan Assessment/Plan Assessment/Plan Assessment and recommendations; 1. Patient admitted with shortness of breath which is combination of underlying mild CHF with possibly acute bronchitis due to influenza. Patient currently on appropriate antimicrobial regimen. 2. Significant leukocytosis on admission with marked interval improvement. Et iology is unclear. 3. Underlying morbid obesity with sleep apnea/obesity hypoventilation syndrome. Continue current supportive care. Continue BiPAP. Patient will need to have a sleep study done on an outpatient basis. Result Diagram: 07/09/18 0456 07/09/18 0456 Results 24hrs Laboratory Tests Test 07/09/18 04:56 07/09/18 05:03 White Blood Count 12.3 #H Red Blood Count 4.48 Hemoglobin 12.2 Hematocrit 39.5 Mean Corpuscular Volume 88.2 Mean Corpuscular Hemoglobin 27.2 L Mean Corpuscular Hemoglobin Concent 30.9 L Red Cell Distribution Width 13.3 Platelet Count 249 Mean Platelet Volume 11.0 H Immature Granulocytes % 2.100 H Neutrophils % 65.9 Lymphocytes % 23.1 Monocytes % 7.4 Eosinophils % 0.9 Basophils % 0.6 Nucleated Red Blood Cells % 0.0 Immature Granulocytes # 0.260 H Neutrophils # 8.1 H Lymphocytes # 2.9 Monocytes # 0.9 Eosinophils # 0.1 Basophils # 0.1 Nucleated Red Blood Cells # 0.0 Sodium Level 141 Potassium Level 4.2 Chloride Level 95 L Carbon Dioxide Level 38 H Anion Gap 8 Blood Urea Nitrogen 12 Creatinine 0.45 Est Glomerular Filtrat Rate mL/min > 60 Glucose Level 98 Calcium Level 8.3 L Phosphorus Level 3.4 Magnesium Level 1.9 Consultation Date/Type/Reason Admit Date/Time Jul 05, 2018 at 21:10 Initial Consult Date 07/08/18 Type of Consult Pulmonary/critical care History of presenting illness; patient is a 28-year-old woman who came into the hospital yesterday with a few days history of worsening shortness of breath with coughing. Patient denies any sputum production any wheezing any fever chills. Upon evaluation patient was found to be in hypercapnic and hypoxemic respiratory failure as well as CHF exacerbation. Patient has been admitted to ICU and started on BiPAP with improvement in symptoms. Past medical history; 1. Likely underlying sleep apnea due to morbid obesity. Medications; reviewed. Allergies; penicillin. Social history; no history of smoking alcohol or drug abuse. Family history; noncontributory. Occupational history; patient is on disability. Review of systems; denies any headache, seizures, sinus symptoms. Any chest pain. Complains of scant cough without any wheezing. Complains of shortness of breath. Denies any high fever, chills, body aches or myalgias. Complains of chronic dyspnea on exertion. Denies any edema. Any abdominal pain, nausea vomiting, constipation, diarrhea or melena. General exam; young woman, morbidly obese, awake and alert. Currently in no distress. 24 HR Interval Summary Free Text/Dictation Patient's condition is markedly improved. Has been transferred out of ICU to medical floor. Denies any shortness of breath. Complains of dry cough with nasal congestion. Denies any wheezing, fever, chills. General exam; young female, morbidly obese. Awake alert. Currently in no distress. Exam/Review of Systems Vital Signs Vitals Vital Signs Date Temp Pulse Resp B/P (MAP) Pulse Ox O2 O2 Flow FiO2 Time Delivery Rate 07/09/18 90 08:59 07/09/18 18 93 Nasal 4.0 08:47 Cannula 07/09/18 98.3 122/66 07:24 (84) 07/09/18 40 05:28 Intake and Output 07/08/18 07/08/18 07/09/18 1515:00 23:00 07:00 IntakeIntake Total 2440 ml 170 ml 750 ml OutputOutput Total 1800 ml 600 ml 1100 ml BalanceBalance 640 ml -430 ml -350 ml Exam HEENT exam; supple neck, JVD difficult to see because of shortening. There is mild nasal congestion. Patient has fair dentition. No neck masses. Chest exam; diminished but clear breath sounds. S1-S2 audible, no murmurs. Regular rhythm. Abdomen exam; soft, nontender. Organomegaly difficult to assess. Bowel sounds audible. Extremity exam; no edema. MAINTENANCE DATA ANALYST exam; no focal deficit. Medications Medications Current Medications IV Flush (NS 3 ml) 3 ml PER PROTOCOL IV ; Start 07/05/18 at 23:30 Ondansetron HCl (Zofran Inj) 4 mg Q6H PRN IV NAUSEA AND/OR VOMITING Last administered on 07/06/18 22:55; Admin Dose 4 MG; Start 07/05/18 at 23:30 Acetaminophen (Tylenol Tab) 650 mg Q6H PRN PO PAIN LEVEL 1-3 OR FEVER Last administered on 07/08/18 14:54; Admin Dose 650 MG; Start 07/05/18 at 23:30 Albuterol/ Ipratropium (Duoneb) 3 ml Q2H RESP THERAPY PRN HHN SHORTNESS OF BREATH; Start 07/05/18 at 23:30 Meropenem/Sodium Chloride 50 ml @ 100 mls/hr Q8 IVPB Last administered on 07/09/18 05:57; Admin Dose 100 MLS/HR; Start 07/06/18 at 15:30 Oseltamivir Phosphate (Tamiflu) 75 mg BID PO Last administered on 07/09/18 09:22; Admin Dose 75 MG; Start 07/06/18 at 19:00; Stop 07/11/18 at 21:00 Guaifenesin/ Dextromethorphan (Robitussin Dm Liquid Cup) 10 ml Q4H PRN PO COUGH Last administered on 07/08/18 14:53; Admin Dose 10 ML; Start 07/06/18 at 17:30 Enoxaparin Sodium (Lovenox) 120 mg Q12 SC Last administered on 07/09/18 0 9:28; Admin Dose 120 MG; Start 07/07/18 at 18:15 Albuterol/ Ipratropium (Duoneb) 3 ml Q6HWA RESP THERAPY HHN Last administered on 07/09/18 08:47; Admin Dose 3 ML; Start 07/07/18 at 14:00 Nystatin (Nystatin Susp) 5 ml QID PO Last administered on 07/09/18 09:22; Admin Dose 5 ML; Start 07/09/18 at 09:00 Doxycycline Hyclate (Vibramycin) 100 mg BID PO Last administered on 07/09/18 09:22; Admin Dose 100 MG; Start 07/09/18 at 09:00 ROGELIO FOSS Jul 09, 2018 09:54
[2018-07-09] MEDS: LORATADINE 10 MG TAB PO SCH (10:05)
--- NOTE | 2018-07-09 13:16 | PN ---
Date/Time of Note Date/Time of Note DATE: 07/09/18 TIME: 13:14 Assessment/Plan VTE Prophylaxis Risk score (from Nsg)>0 risk: 5 SCD applied (from Nsg): Yes Pharmacological prophylaxis: LMWH Lines/Catheters IV Catheter Type (from Nrsg): Peripheral IV Urinary Cath still in place: Yes Reason Cath still needed: other (indicate) Assessment/Plan Hospital Course SUBJECTIVE: Complains of B/L decreased hearing acuity. OBJECTIVE: Physical Exam General: Morbidly obese, 28 year-old female lying in bed. HEENT: Normocephalic, atraumatic. Eyes: Anicteric sclerae, conjunctivae clear. ENT: Nasal septum midline, oral mucosa is dry. Neck: Obese. Otoscope exam revealed cerumen in both ears. Respiratory: Bilaterally diminished breath sounds. On BiPAP. Cardiovascular: S1, S2 heard. Regular rate and rhythm. Abdomen: Soft, nontender, and nondistended. Bowel sounds positive in all 4 quadrants. Genitourinary: Deferred. Extremities: No cyanosis, no clubbing. Peripheral pulses palpable. Neurologic: The patient is somnolent. Skin: Normal skin turgor. No skin rashes. Labs & Vitals per chart ASSESSMENT & PLAN 28-year-old female with comorbidities including morbid obesity with a BMI of almost 68, obstructive sleep apnea, and chronic hypoxia on home O2, who came to the emergency room with a chief complaint of dyspnea, congestion, fevers, cough, and body aches, who was found to have leukocytosis, febrile illness, and bandemia, who was admitted to inpatient setting for further treatment and evaluation. The patient was initially monitored on telemetry floor. On 07/07/2018, the patient's condition deteriorated related with worsening CO2 retention the patient was transferred to intensive care unit for intubation. However, the patient refused intubation. Nevertheless, the patient responded well to noninvasive positive pressure ventilation. 1. Sepsis with leukocytosis, febrile illness, and bandemia, upon admission with pneumonia. -Continue antimicrobials. -ID following. 2. Acute on chronic respiratory failure. -Hypoxic and hypercapnic. -Continue inhaled bronchodilators. -Noninvasive positive pressure ventilation as indicated. -Unable to obtain CT pulmonary angiogram or lung VQ scan because of morbid obesity. -The patient on therapeutic anticoagulation for possible underlying PE. -Pulmonary following. 3. Diastolic heart failure. -Continue spot diuretics. 4. Morbid obesity. -BMI almost 68 kg/m. 5. Fluids, electrolytes, and nutrition. -Regular diet. 6. DVT prophylaxis. -On therapeutic Lovenox. 7. Plan. -Continue antimicrobials as per ID. -Await clinical improvement. -Ceruminolytic for B/L ears. The patient was seen in collaboration with Dr. Oconnor. Result Diagram: 07/09/18 0456 07/09/18 0456 Results 24hrs Laboratory Tests Test 07/09/18 04:56 07/09/18 05:03 White Blood Count 12.3 #H Red Blood Count 4.48 Hemoglobin 12.2 Hematocrit 39.5 Mean Corpuscular Volume 88.2 Mean Corpuscular Hemoglobin 27.2 L Mean Corpuscular Hemoglobin Concent 30.9 L Red Cell Distribution Width 13.3 Platelet Count 249 Mean Platelet Volume 11.0 H Immature Granulocytes % 2.100 H Neutrophils % 65.9 Lymphocytes % 23.1 Monocytes % 7.4 Eosinophils % 0.9 Basophils % 0.6 Nucleated Red Blood Cells % 0.0 Immature Granulocytes # 0.260 H Neutrophils # 8.1 H Lymphocytes # 2.9 Monocytes # 0.9 Eosinophils # 0.1 Basophils # 0.1 Nucleated Red Blood Cells # 0.0 Sodium Level 141 Potassium Level 4.2 Chloride Level 95 L Carbon Dioxide Level 38 H Anion Gap 8 Blood Urea Nitrogen 12 Creatinine 0.45 Est Glomerular Filtrat Rate mL/min > 60 Glucose Level 98 Calcium Level 8.3 L Phosphorus Level 3.4 Magnesium Level 1.9 Exam/Review of Systems Vital Signs Vitals Vital Signs Date Temp Pulse Resp B/P (MAP) Pulse Ox O2 O2 Flow FiO2 Time Delivery Rate 07/09/18 87 12:16 07/09/18 99.0 20 135/81 94 11:09 (99) 07/09/18 Nasal 4.0 08:47 Cannula 07/09/18 40 05:28 Intake and Output 07/08/18 07/08/18 07/09/18 1515:00 23:00 07:00 IntakeIntake Total 2440 ml 170 ml 750 ml OutputOutput Total 1800 ml 600 ml 1100 ml BalanceBalance 640 ml -430 ml -350 ml Medications Medications Current Medications IV Flush (NS 3 ml) 3 ml PER PROTOCOL IV ; Start 07/05/18 at 23:30 Ondansetron HCl (Zofran Inj) 4 mg Q6H PRN IV NAUSEA AND/OR VOMITING Last administered on 07/06/18 22:55; Admin Dose 4 MG; Start 07/05/18 at 23:30 Acetaminophen (Tylenol Tab) 650 mg Q6H PRN PO PAIN LEVEL 1-3 OR FEVER Last administered on 07/08/18 14:54; Admin Dose 650 MG; Start 07/05/18 at 23:30 Albuterol/ Ipratropium (Duoneb) 3 ml Q2H RESP THERAPY PRN HHN SHORTNESS OF BREATH; Start 07/05/18 at 23:30 Meropenem/Sodium Chloride 50 ml @ 100 mls/hr Q8 IVPB Last administered on 07/09/18 05:57; Admin Dose 100 MLS/HR; Start 07/06/18 at 15:30 Oseltamivir Phosphate (Tamiflu) 75 mg BID PO Last administered on 07/09/18 09:22; Admin Dose 75 MG; Start 07/06/18 at 19:00; Stop 07/11/18 at 21:00 Guaifenesin/ Dextromethorphan (Robitussin Dm Liquid Cup) 10 ml Q4H PRN PO COUGH Last administered on 07/08/18 14:53; Admin Dose 10 ML; Start 07/06/18 at 17:30 Enoxaparin Sodium (Lovenox) 120 mg Q12 SC Last administered on 07/09/18 09:28; Admin Dose 120 MG; Start 07/07/18 at 18:15 Albuterol/ Ipratropium (Duoneb) 3 ml Q6HWA RESP THERAPY HHN Last administered on 07/09/18 08:47; Admin Dose 3 ML; Start 07/07/18 at 14:00 Nystatin (Nystatin Susp) 5 ml QID PO Last administered on 07/09/18 09:22; Admin Dose 5 ML; Start 07/09/18 at 09:00 Doxycycline Hyclate (Vibramycin) 100 mg BID PO Last administered on 07/09/18 09:22; Admin Dose 100 MG; Start 07/09/18 at 09:00 Loratadine (Claritin) 10 mg DAILY PO Last administered on 07/09/18at 10:05; Admin Dose 10 MG; Start 12/26/18 at 10:00 KAREN KIMBALL NP Jul 09, 2018 13:16
--- NOTE | 2018-07-09 18:28 | NUR ---
EOSS: Pt stable. All needs met. IV intact. Bed locked in lowest position with 2 side rails raised. Steady gait. Refuses bed alarm at times. Call light in reach. Pleasant. Cooperative. Pt turned self and ambulated occasionally. Family visited. Family given updates by phone. No issues during shift.
[2018-07-09] MEDS: CARBAMIDE PEROXIDE 6.5% 15ML OTIC BOTH EARS SCH (21:00)
[2018-07-10] VITALS (13 sets, daily range): BP systolic 119–137; BP diastolic 60–85; PULSE 74–91; RESP 18–20
[2018-07-10] MEDS: MEROPENEM 1 GM/50ML(PMX) 50 ML IVPB SCH (06:04)
--- NOTE | 2018-07-10 06:45 | NUR ---
EOSS: Pt. remained stable during shift. No acute changes. Pt. on Bipap most of the night. Oxygen saturation 98%. Hourly rounding complete. All needs meet. Bed in lowest position. Bed alarm on. Pt. refused bed alarm most of the shift. Will continue to monitor and report care to day shift.
--- NOTE | 2018-07-10 07:42 | CONS ---
Date/Time of Note Date/Time of Note DATE: 07/10/18 TIME: 07:38 Assessment/Plan Assessment/Plan Hospital Course 1) diffuse pneumonia viral vs bacterial pt visits her mom often at a rehab place continue treatment for routine and health care associated infection due to her decrease in hearing will d/c vanco/azithro and start doxycycline for MRSA and atypical coverage continue with merrem/tamiflu get viral PCR of nares, initial flu ag were negative nasal for MRSA is pending check procalcitonin repeat blood gas is to be done soon 07/09 - much improved oxygenation continue present meds of merrem/doxy/tamiflu change doxy to po get sinus xray no otoscopy on the floor, I would recommend hospitalist look at eardrum to see if she has cerumenal impacation to explain bilateral decrease in hearing if pt continues to do well will change merrem to oral omnicef tomorrow 07/10 - [facility] only has vantin not omnicef so will change to only vantin 200mg BID and continue for 5 days today is last day of tamiflu d/c doxy/merrem, no MRSA found in nasal cx pt to get debrox for wax build up in ears which is likely cause for decrease in hearing 2) sleep apnea 3) leukocytosis 07/09 - much improved 07/10 - resolved 4) mild thrush start nystatin 07/10 - improved 5) sinusitis 07/10 - pt tolerated ceftriaxone, so will give vantin to complete her 10 day course pt has some tenderned to R maxillary area Result Diagram: 07/10/18 0519 07/10/18 0519 Results 24hrs Laboratory Tests Test 07/10/18 05:19 White Blood Count 10.5 Red Blood Count 4.70 Hemoglobin 12.6 Hematocrit 40.4 Mean Corpuscular Volume 86.0 Mean Corpuscular Hemoglobin 26.8 L Mean Corpuscular Hemoglobin Concent 31.2 L Red Cell Distribution Width 13.3 Platelet Count 233 Mean Platelet Volume 10.6 H Immature Granulocytes % 3.600 H Neutrophils % 58.6 Lymphocytes % 25.8 Monocytes % 9.8 Eosinophils % 1.7 Basophils % 0.5 Nucleated Red Blood Cells % 0.2 H Immature Granulocytes # 0.380 H Neutrophils # 6.1 Lymphocytes # 2.7 Monocytes # 1.0 H Eosinophils # 0.2 Basophils # 0.1 Nucleated Red Blood Cells # 0.0 Sodium Level 139 Potassium Level 4.5 Chloride Level 95 L Carbon Dioxide Level 40 H Anion Gap 4 L Blood Urea Nitrogen 10 Creatinine 0.44 Est Glomerular Filtrat Rate mL/min > 60 Glucose Level 91 Calcium Level 8.3 L Phosphorus Level 4.9 Magnesium Level 1.6 L Consultation Date/Type/Reason Admit Date/Time Jul 05, 2018 at 21:10 Initial Consult Date 07/08/18 Type of Consult ID 24 HR Interval Summary Free Text/Dictation pt has cough, minimal phlegm pain to R chest with cough and deep breathing no N, V, D breathing is better Exam/Review of Systems Vital Signs Vitals Vital Signs Date Temp Pulse Resp B/P (MAP) Pulse Ox O2 O2 Flow FiO2 Time Delivery Rate 07/10/18 98.3 74 19 137/78 94 Nasal 07:02 (97) Cannula 07/10/18 4.0 06:12 07/10/18 45 04:55 Intake and Output 07/09/18 07/09/18 07/10/18 1515:00 23:00 07:00 IntakeIntake Total 100 ml 900 ml 1100 ml OutputOutput Total 1300 ml 3 ml BalanceBalance 100 ml -400 ml 1097 ml Exam Constitutional: alert, oriented Eyes: nl sclera ENMT: mucosa pink and moist Respiratory: clear to auscultation, other (distant BS) Cardiovascular: regular rate and rhythm Gastrointestinal: soft, non-tender Musculoskeletal: other (pt has some pain to R lower sternal-rib junction) Medications Medications Current Medications IV Flush (NS 3 ml) 3 ml PER PROTOCOL IV ; Start 07/05/18 at 23:30 Ondansetron HCl (Zofran Inj) 4 mg Q6H PRN IV NAUSEA AND/OR VOMITING Last administered on 07/06/18at 22:55; Admin Dose 4 MG; Start 07/05/18 at 23:30 Acetaminophen (Tylenol Tab) 650 mg Q6H PRN PO PAIN LEVEL 1-3 OR FEVER Last administered on 07/08/18at 14:54; Admin Dose 650 MG; Start 07/05/18 at 23:30 Albuterol/ Ipratropium (Duoneb) 3 ml Q2H RESP THERAPY PRN HHN SHORTNESS OF BREATH; Start 07/05/18 at 23:30 Meropenem/Sodium Chloride 50 ml @ 100 mls/hr Q8 IVPB Last administered on 07/10/18 06:04; Admin Dose 100 MLS/HR; Start 07/06/18 at 15:30 Oseltamivir Phosphate (Tamiflu) 75 mg BID PO Last administered on 07/09/18 21:18; Admin Dose 75 MG; Start 07/06/18 at 19:00; Stop 07/11/18 at 21:00 Guaifenesin/ Dextromethorphan (Robitussin Dm Liquid Cup) 10 ml Q4H PRN PO COUGH Last administered on 07/08/18 14:53; Admin Dose 10 ML; Start 07/06/18 at 17:30 Enoxaparin Sodium (Lovenox) 120 mg Q12 SC Last administered on 07/09/18at 22:29; Admin Dose 120 MG; Start 07/07/18 at 18:15 Albuterol/ Ipratropium (Duoneb) 3 ml Q6HWA RESP THERAPY HHN Last administered on 07/09/18at 20:37; Admin Dose 3 ML; Start 07/07/18 at 14:00 Nystatin (Nystatin Susp) 5 ml QID PO Last administered on 07/09/18at 21:18; Admin Dose 5 ML; Start 07/09/18 at 09:00 Doxycycline Hyclate (Vibramycin) 100 mg BID PO Last administered on 07/09/18at 21:18; Admin Dose 100 MG; Start 07/09/18 at 09:00 Loratadine (Claritin) 10 mg DAILY PO Last administered on 07/09/18at 10:05; Admin Dose 10 MG; Start 07/09/18 at 10:00 Carbamide Peroxide (Debrox Otic) 3 drop BID BOTH EARS ; Start 07/09/18 at 21:00 RICHMOND GONCALVES MD Jul 10, 2018 07:42
[2018-07-10] MEDS: NYSTATIN SUSP 5 ML CUP PO SCH ×4 (08:19→20:29)
[2018-07-10] MEDS: LORATADINE 10 MG TAB PO SCH (08:32)
[2018-07-10] MEDS: ACETAMINOPHEN 325 MG TAB PO PRN ×2 (08:32→20:29)
[2018-07-10] MEDS: OSELTAMIVIR 75 MG CAP PO SCH ×2 (08:32→20:29)
[2018-07-10] MEDS: ENOXAPARIN 60 MG/0.6 ML SYG SC SCH ×2 (08:39→21:07)
[2018-07-10] MEDS: ALBUTEROL/IPRATROPIUM (NEB) 3 ML AMP HHN SCH ×3 (08:48→20:45)
[2018-07-10] MEDS: CEFPODOXIME 200 MG TAB PO SCH ×2 (09:19→20:29)
[2018-07-10] MEDS ORDERED: MAGNESIUM SULFATE 2 GM/50 ML 50 ML IVPB ONE (10:00)
--- NOTE | 2018-07-10 10:39 | CONS ---
Date/Time of Note Date/Time of Note DATE: 07/10/18 TIME: 10:37 Assessment/Plan Assessment/Plan Assessment/Plan Assessment and recommendations; 1. Patient admitted for CHF exacerbation with likely superimposed viral br onchitis with interval improvement. 2. Underlying obstructive sleep apnea with obesity hypoventilation syndrome with likely chronic type II respiratory failure. Continue current supportive care. Patient will need home BiPAP. Result Diagram: 07/10/18 0519 07/10/18 0519 Results 24hrs Laboratory Tests Test 07/10/18 05:19 White Blood Count 10.5 Red Blood Count 4.70 Hemoglobin 12.6 Hematocrit 40.4 Mean Corpuscular Volume 86.0 Mean Corpuscular Hemoglobin 26.8 L Mean Corpuscular Hemoglobin Concent 31.2 L Red Cell Distribution Width 13.3 Platelet Count 233 Mean Platelet Volume 10.6 H Immature Granulocytes % 3.600 H Neutrophils % 58.6 Lymphocytes % 25.8 Monocytes % 9.8 Eosinophils % 1.7 Basophils % 0.5 Nucleated Red Blood Cells % 0.2 H Immature Granulocytes # 0.380 H Neutrophils # 6.1 Lymphocytes # 2.7 Monocytes # 1.0 H Eosinophils # 0.2 Basophils # 0.1 Nucleated Red Blood Cells # 0.0 Sodium Level 139 Potassium Level 4.5 Chloride Level 95 L Carbon Dioxide Level 40 H Anion Gap 4 L Blood Urea Nitrogen 10 Creatinine 0.44 Est Glomerular Filtrat Rate mL/min > 60 Glucose Level 91 Calcium Level 8.3 L Phosphorus Level 4.9 Magnesium Level 1.6 L Consultation Date/Type/Reason Admit Date/Time Jul 05, 2018 at 21:10 Initial Consult Date 07/08/18 Type of Consult Pulmonary/critical care History of presenting illness; patient is a 28-year-old woman who came into the hospital yesterday with a few days history of worsening shortness of breath with coughing. Patient denies any sputum production any wheezing any fever chills. Upon evaluation patient was found to be in hypercapnic and hypoxemic respiratory failure as well as CHF exacerbation. Patient has been admitted to ICU and started on BiPAP with improvement in symptoms. Past medical history; 1. Likely underlying sleep apnea due to morbid obesity. Medications; reviewed. Allergies; penicillin. Social history; no history of smoking alcohol or drug abuse. Family history; noncontributory. Occupational history; patient is on disability. Review of systems; denies any headache, seizures, sinus symptoms. Any chest pain. Complains of scant cough without any wheezing. Complains of shortness of breath. Denies any high fever, chills, body aches or myalgias. Complains of chronic dyspnea on exertion. Denies any edema. Any abdominal pain, nausea vomiting, constipation, diarrhea or melena. General exam; young woman, morbidly obese, awake and alert. Currently in no distress. 24 HR Interval Summary Free Text/Dictation Patient's condition is stable. Denies any dyspnea at rest. Any wheezing, cough, sputum production. Any fever chills. General exam; young female, morbidly obese, awake and alert. Currently in no distress. Exam/Review of Systems Vital Signs Vitals Vital Signs Date Temp Pulse Resp B/P (MAP) Pulse Ox O2 O2 Flow FiO2 Time Delivery Rate 07/10/18 89 22 93 Nasal 4.0 08:48 Cannula 07/10/18 98.3 137/78 07:02 (97) 07/10/18 45 04:55 Intake and Output 07/09/18 07/09/18 07/10/18 1515:00 23:00 07:00 IntakeIntake Total 100 ml 900 ml 1100 ml OutputOutput Total 1300 ml 3 ml BalanceBalance 100 ml -400 ml 1097 ml Exam HEENT exam; supple neck, JVD difficult to see because of shortening. Patient has good dentition. No neck masses. Chest exam; diminished breath sounds bilaterally. S1-S2 audible, no murmurs. Regular rhythm. Abdomen exam; soft, protuberant. Organomegaly difficult to assess. Extremity exam; right lower extremity Skin changes. TRANSMISSION SUPERINTENDENT exam; no focal deficit. Medications Medications Current Medications IV Flush (NS 3 ml) 3 ml PER PROTOCOL IV ; Start 07/05/18 at 23:30 Ondansetron HCl (Zofran Inj) 4 mg Q6H PRN IV NAUSEA AND/OR VOMITING Last administered on 07/06/18at 22:55; Admin Dose 4 MG; Start 07/05/18 at 23:30 Acetaminophen (Tylenol Tab) 650 mg Q6H PRN PO PAIN LEVEL 1-3 OR FEVER Last administered on 07/10/18at 08:32; Admin Dose 650 MG; Start 07/05/18 at 23:30 Albuterol/ Ipratropium (Duoneb) 3 ml Q2H RESP THERAPY PRN HHN SHORTNESS OF BREATH; Start 07/05/18 at 23:30 Oseltamivir Phosphate (Tamiflu) 75 mg BID PO Last administered on 07/10/18 08:32; Admin Dose 75 MG; Start 07/06/18 at 19:00; Stop 07/11/18 at 21:00 Guaifenesin/ Dextromethorphan (Robitussin Dm Liquid Cup) 10 ml Q4H PRN PO COUGH Last administered on 07/08/18 14:53; Admin Dose 10 ML; Start 07/06/18 at 17:30 Enoxaparin Sodium (Lovenox) 120 mg Q12 SC Last administered on 07/10/18 08:39; Admin Dose 120 MG; Start 07/07/18 at 18:15 Albuterol/ Ipratropium (Duoneb) 3 ml Q6HWA RESP THERAPY HHN Last administered on 07/10/18 08:48; Admin Dose 3 ML; Start 07/07/18 at 14:00 Nystatin (Nystatin Susp) 5 ml QID PO Last administered on 07/09/18 21:18; Admin Dose 5 ML; Start 07/09/18 at 09:00 Loratadine (Claritin) 10 mg DAILY PO Last administered on 07/10/18 08:32; Admin Dose 10 MG; Start 07/09/18 at 10:00 Carbamide Peroxide (Debrox Otic) 3 drop BID BOTH EARS ; Start 07/09/18 at 21:00 Cefpodoxime Proxetil (Vantin) 200 mg BID PO Last administered on 07/10/18 09:19; Admin Dose 200 MG; Start 07/10/18 at 09:00 Magnesium Sulfate 50 ml @ 25 mls/hr ONCE ONCE IVPB Last administered on 07/10/18 10:34; Admin Dose 25 MLS/HR; Start 07/10/18 at 10:00; Stop 07/10/18 at 11:59 ROGELIO FOSS Jul 10, 2018 10:38
[2018-07-10] MEDS: CARBAMIDE PEROXIDE 6.5% 15ML OTIC BOTH EARS SCH ×2 (13:33→20:30)
--- NOTE | 2018-07-10 15:05 | PN ---
Date/Time of Note Date/Time of Note DATE: 07/10/18 TIME: 15:02 Assessment/Plan VTE Prophylaxis Risk score (from Ns)>0 risk: 4 SCD applied (from [facility]): No SCD contraindicated: other Pharmacological prophylaxis: LMWH Lines/Catheters IV Catheter Type (from [facility]): Peripheral IV Urinary Cath still in place: No Assessment/Plan Hospital Course SUBJECTIVE: Hearing acuity on the left side improved. OBJECTIVE: Physical Exam General: Morbidly obese, 28 year-old female lying in bed. HEENT: Normocephalic, atraumatic. Eyes: Anicteric sclerae, conjunctivae clear. ENT: Nasal septum midline, oral mucosa is dry. Neck: Obese. Respiratory: Bilaterally diminished breath sounds. On BiPAP. Cardiovascular: S1, S2 heard. Regular rate and rhythm. Abdomen: Soft, nontender, and nondistended. Bowel sounds positive in all 4 quadrants. Genitourinary: Deferred. Extremities: No cyanosis, no clubbing. Peripheral pulses palpable. Neurologic: The patient is awake, alert, and oriented. Skin: Normal skin turgor. No skin rashes. Labs & Vitals per chart ASSESSMENT & PLAN 28-year-old female with comorbidities including morbid obesity with a BMI of almost 68, obstructive sleep apnea, and chronic hypoxia on home O2, who came to the emergency room with a chief complaint of dyspnea, congestion, fevers, cough, and body aches, who was found to have leukocytosis, febrile illness, and bandemia, who was admitted to inpatient setting for further treatment and evaluation. The patient was initially monitored on telemetry floor. On 07/07/2018, the patient's condition deteriorated related with worsening CO2 retention the patient was transferred to intensive care unit for intubation. However, the patient refused intubation. Nevertheless, the patient responded well to noninvasive positive pressure ventilation. 1. Sepsis with leukocytosis, febrile illness, and bandemia, upon admission with pneumonia. -Continue antimicrobials. -ID following. 2. Acute on chronic respiratory failure. -Hypoxic and hypercapnic. -Continue inhaled bronchodilators. -Noninvasive positive pressure ventilation as indicated. -Unable to obtain CT pulmonary angiogram or lung VQ scan because of morbid obesity. -Therapeutic anticoagulation discontinued as per the discussion with pulmonology who agreed the patient less likely have any PE. -Pulmonary following. 3. Diastolic heart failure. -Continue spot diuretics. 4. Obstructive sleep apnea. -Continue nocturnal CPAP. 5. Morbid obesity. -BMI almost 68 kg/m. 6. Fluids, electrolytes, and nutrition. -Regular diet. 7. DVT prophylaxis. -SQ Lovenox. 8. Plan. -Continue antimicrobials as per ID. -Await clinical improvement. -Ceruminolytic for B/L ears. The patient was seen in collaboration with Dr. Oconnor. Result Diagram: 07/10/1819 07/10/1819 Results 24hrs Laboratory Tests Test 07/10/18 05:19 White Blood Count 10.5 Red Blood Count 4.70 Hemoglobin 12.6 Hematocrit 40.4 Mean Corpuscular Volume 86.0 Mean Corpuscular Hemoglobin 26.8 L Mean Corpuscular Hemoglobin Concent 31.2 L Red Cell Distribution Width 13.3 Platelet Count 233 Mean Platelet Volume 10.6 H Immature Granulocytes % 3.600 H Neutrophils % 58.6 Lymphocytes % 25.8 Monocytes % 9.8 Eosinophils % 1.7 Basophils % 0.5 Nucleated Red Blood Cells % 0.2 H Immature Granulocytes # 0.380 H Neutrophils # 6.1 Lymphocytes # 2.7 Monocytes # 1.0 H Eosinophils # 0.2 Basophils # 0.1 Nucleated Red Blood Cells # 0.0 Sodium Level 139 Potassium Level 4.5 Chloride Level 95 L Carbon Dioxide Level 40 H Anion Gap 4 L Blood Urea Nitrogen 10 Creatinine 0.44 Est Glomerular Filtrat Rate mL/min > 60 Glucose Level 91 Calcium Level 8.3 L Phosphorus Level 4.9 Magnesium Level 1.6 L Exam/Review of Systems Vital Signs Vitals Vital Signs Date Temp Pulse Resp B/P (MAP) Pulse Ox O2 O2 Flow FiO2 Time Delivery Rate 07/10/18 83 20 94 Nasal 4.0 13:50 Cannula 07/10/18 98.4 136/85 11:26 (102) 07/10/18 45 04:55 Intake and Output 07/09/18 07/09/18 07/10/18 1515:00 23:00 07:00 IntakeIntake Total 100 ml 900 ml 1100 ml OutputOutput Total 1300 ml 3 ml BalanceBalance 100 ml -400 ml 1097 ml Medications Medications Current Medications IV Flush (NS 3 ml) 3 ml PER PROTOCOL IV ; Start 07/05/18 at 23:30 Ondansetron HCl (Zofran Inj) 4 mg Q6H PRN IV NAUSEA AND/OR VOMITING Last administered on 07/06/18 22:55; Admin Dose 4 MG; Start 07/05/18 at 23:30 Acetaminophen (Tylenol Tab) 650 mg Q6H PRN PO PAIN LEVEL 1-3 OR FEVER Last administered on 07/10/18 08:32; Admin Dose 650 MG; Start 07/05/18 at 23:30 Albuterol/ Ipratropium (Duoneb) 3 ml Q2H RESP THERAPY PRN HHN SHORTNESS OF BREATH; Start 07/05/18 at 23:30 Oseltamivir Phosphate (Tamiflu) 75 mg BID PO Last administered on 07/10/18 08 :32; Admin Dose 75 MG; Start 07/06/18 at 19:00; Stop 07/11/18 at 21:00 Guaifenesin/ Dextromethorphan (Robitussin Dm Liquid Cup) 10 ml Q4H PRN PO COUGH Last administered on 07/08/18 14:53; Admin Dose 10 ML; Start 07/06/18 at 17:30 Enoxaparin Sodium (Lovenox) 120 mg Q12 SC Last administered on 07/10/18 08:39; Admin Dose 120 MG; Start 07/07/18 at 18:15 Albuterol/ Ipratropium (Duoneb) 3 ml Q6HWA RESP THERAPY HHN Last administered on 07/10/18 13:50; Admin Dose 3 ML; Start 07/07/18 at 14:00 Nystatin (Nystatin Susp) 5 ml QID PO Last administered on 07/09/18 21:18; Admin Dose 5 ML; Start 07/09/18 at 09:00 Loratadine (Claritin) 10 mg DAILY PO Last administered on 07/10/18 08:32; Admin Dose 10 MG; Start 07/09/18 at 10:00 Carbamide Peroxide (Debrox Otic) 3 drop BID BOTH EARS Last administered on 07/10/18 13:33; Admin Dose 3 DROP; Start 07/09/18 at 21:00 Cefpodoxime Proxetil (Vantin) 200 mg BID PO Last administered on 07/10/18 09:19; Admin Dose 200 MG; Start 07/10/18 at 09:00 KAREN KIMBALL NP Jul 10, 2018 15:05
--- NOTE | 2018-07-10 18:15 | NUR ---
EOSS: Pt stable. All needs met. IV's intact. Bed locked in lowest position with 2 side rails raised. Steady gait. Refuses bed alarm at times. Call light in reach. Pleasant. Cooperative. Pt turned self and ambulated occasionally. Sat in chair. Family visited. No issues during shift.
[2018-07-11] VITALS (10 sets, daily range): BP systolic 126–135; BP diastolic 60–74; PULSE 78–97; RESP 14–18
--- NOTE | 2018-07-11 06:33 | NUR ---
Pt AOx4, ambulatory, steady VS stable Sinus rhythm on monitor Complained of headache, Tylenol given Pt refused BiPAP unless she desats while sleeping Pt saturation was within 93-98% on 4L O2 nasal cannula while sleeping Hourly Rounding done Needs attended
[2018-07-11] MEDS: ALBUTEROL/IPRATROPIUM (NEB) 3 ML AMP HHN SCH ×2 (08:40→14:02)
[2018-07-11] MEDS: NYSTATIN SUSP 5 ML CUP PO SCH ×3 (08:56→18:05)
[2018-07-11] MEDS: CEFPODOXIME 200 MG TAB PO SCH (08:56)
[2018-07-11] MEDS: CARBAMIDE PEROXIDE 6.5% 15ML OTIC BOTH EARS SCH (08:56)
[2018-07-11] MEDS: LORATADINE 10 MG TAB PO SCH (08:56)
[2018-07-11] MEDS: ENOXAPARIN 60 MG/0.6 ML SYG SC SCH (09:53)
[2018-07-11] MEDS ORDERED: CEFP200T2 PO (13:59)
--- NOTE | 2018-07-11 14:06 | PDOCDIS ---
Discharge Instructions CONDITION [id number] Patient Condition: [id number] Stable HOME CARE INSTRUCTIONS: [id number] Special Diet: [id number] regular FOLLOW UP/APPOINTMENTS Follow-up Plan Jean-Paul Gagnon MD Specialty: Internal Medicine Office Address: [address] [place], [place] [id number] Office OTHER ORDERS: Other Orders: 1. Complete the course of antibiotics. 2. Resume activities as tolerated. 3. Use nocturnal CPAP as instructed. 4. Take a regular, preferably low-cholesterol, low-calorie diet. 5. Please go to the nearest emergency room if you have persistent fevers, shortness of breath, or any other unusual signs/symptoms. 6. Follow-up with your primary care physician 1 week. If you do not have a primary care physician, please call Dr. Jean-Paul Gagnon's office. KAREN KIMBALL NP Jul 11, 2018 14:06
[2018-07-11] MEDS ORDERED: ALBU8.5H8 INH (14:13)
--- NOTE | 2018-07-11 14:19 | CONS ---
Date/Time of Note Date/Time of Note DATE: 07/11/18 TIME: 14:18 Consult Date/Type/Reason Admit Date/Time Jul 05, 2018 at 21:10 Initial Consult Date 07/08/18 Type of Consultation: Pulmonary ICU Subjective Patient stable this morning. Wants to go home. Denies shortness of breath. Objective Vital Signs Date Temp Pulse Resp B/P (MAP) Pulse Ox O2 O2 Flow FiO2 Time Delivery Rate 07/11/18 86 18 96 Nasal 4.0 14:12 Cannula 07/11/18 97.7 128/74 11:20 (92) 07/10/18 45 04:55 Intake and Output 07/10/18 07/10/18 07/11/18 1515:00 23:00 07:00 IntakeIntake Total 50 ml 850 ml 720 ml OutputOutput Total 4 ml 3 ml BalanceBalance 50 ml 846 ml 717 ml Exam GENERAL: Morbidly obese young lady awake alert oriented VITAL SIGNS: per chart NECK: Supple. No JVD or lymphadenopathy. CARDIAC EXAM: S1, S2. No added sounds or murmurs. CHEST: clear bilaterally, No added sounds, rales or wheezes ABDOMEN: Soft, nontender. No guarding or rebound. EXTREMITIES: No cyanosis, clubbing or edema. NEUROLOGIC: Generalized weakness. No focal deficits. Results/Medications Result Diagram: 07/11/185 07/11/18 0455 Results 24 hrs Laboratory Tests Test 07/11/18 04:55 White Blood Count 10.8 Red Blood Count 4.95 Hemoglobin 13.1 Hematocrit 42.5 Mean Corpuscular Volume 85.9 Mean Corpuscular Hemoglobin 26.5 L Mean Corpuscular Hemoglobin Concent 30.8 L Red Cell Distribution Width 13.3 Platelet Count 243 Mean Platelet Volume 10.4 Immature Granulocytes % 4.300 H Neutrophils % 71.1 Lymphocytes % 15.2 Monocytes % 7.0 Eosinophils % 1.8 Basophils % 0.6 Nucleated Red Blood Cells % 0.0 Immature Granulocytes # 0.470 H Neutrophils # 7.7 H Lymphocytes # 1.7 Monocytes # 0.8 Eosinophils # 0.2 Basophils # 0.1 Nucleated Red Blood Cells # 0.0 Sodium Level 141 Potassium Level 4.9 Chloride Level 95 L Carbon Dioxide Level 40 H Anion Gap 6 Blood Urea Nitrogen 12 Creatinine 0.41 L Est Glomerular Filtrat Rate mL/min > 60 Glucose Level 99 Calcium Level 8.7 Phosphorus Level 6.4 H Magnesium Level 1.9 Medications Current Medications IV Flush (NS 3 ml) 3 ml PER PROTOCOL IV ; Start 07/05/18 at 23:30 Ondansetron HCl (Zofran Inj) 4 mg Q6H PRN IV NAUSEA AND/OR VOMITING Last administered on 07/06/18at 22:55; Admin Dose 4 MG; Start 07/05/18 at 23:30 Acetaminophen (Tylenol Tab) 650 mg Q6H PRN PO PAIN LEVEL 1-3 OR FEVER Last administered on 07/10/18 20:29; Admin Dose 650 MG; Start 07/05/18 at 23:30 Albuterol/ Ipratropium (Duoneb) 3 ml Q2H RESP THERAPY PRN HHN SHORTNESS OF BREATH; Start 07/05/18 at 23:30 Guaifenesin/ Dextromethorphan (Robitussin Dm Liquid Cup) 10 ml Q4H PRN PO COUGH Last administered on 07/08/18 14:53; Admin Dose 10 ML; Start 07/06/18 at 17:30 Albuterol/ Ipratropium (Duoneb) 3 ml Q6HWA RESP THERAPY HHN Last administered on 07/11/18 14:02; Admin Dose 3 ML; Start 07/07/18 at 14:00 Nystatin (Nystatin Susp) 5 ml QID PO Last administered on 07/11/18 13:10; Admin Dose 5 ML; Start 07/09/18 at 09:00 Loratadine (Claritin) 10 mg DAILY PO Last administered on 07/11/18 08:56; Admin Dose 10 MG; Start 07/09/18 at 10:00 Carbamide Peroxide (Debrox Otic) 3 drop BID BOTH EARS Last administered on 06/15 08:56; Admin Dose 3 DROP; Start 07/09/18 at 21:00 Cefpodoxime Proxetil (Vantin) 200 mg BID PO Last administered on 07/11/18 08:56; Admin Dose 200 MG; Start 07/10/18 at 09:00 Assessment/Plan Chief Complaint/Hosp Course Assessment 1. Status post acute on chronic hypoxic respiratory failure likely acute tracheobronchitis 2. Morbid obesity with obstructive sleep apnea and obesity hypoventilation syndrome Plan 1. DC home with supplemental O2 and bilevel ventilation which she already has Follow-up with primary care physician MARILYN GONZALEZ MD, [facility] Jul 11, 2018 14:19
--- NOTE | 2018-07-11 17:16 | DS ---
Date/Time of Note Date/Time of Note DATE: 07/11/18 TIME: 17:11 Discharge Summary Admission/Discharge Info Admit Date/Time Jul 05, 2018 at 21:10 Discharge Date/Time Discharge Diagnosis 1. Sepsis with leukocytosis, febrile illness, and bandemia, upon admission with pneumonia. 2. Healthcare associated pneumonia. 3. Acute on chronic respiratory failure. Hypoxic and hypercapnic. 4. Diastolic heart failure. 5. Obstructive sleep apnea. 6. Morbid obesity. BMI almost 68 kg/m. Patient Condition: Stable Consults 1. Kashmir Chris MD, Pulmonary. 2. Ambrosio Trejo MD, Pulmonary. 3. Tremaine Hyatt MD, Infectious Diseases. Procedures B/L LE Venous Doppler Study IMPRESSION: 1. No evidence of deep vein thrombosis involving either lower extremity. B/L UE Venous Doppler Study IMPRESSION: 1. No sonographic evidence for venous thrombosis. 2D Echocardiogram Conclusions Normal left ventricular systolic function. Normal left ventricular cavity size. Severe concentric left ventricular hypertrophy. Ejection fraction is visually estimated at 60 %. Abnormal Diastolic Function. Mitral valve is not well visualized. Mild mitral leaflet calcification. Mild mitral annular calcification. Trace mitral regurgitation. No significant aortic stenosis or insufficiency. Aortic valve not well visualized. Aortic cusps appear mildly calcified. No aortic regurgitation. Normal appearance of the tricuspid valve. Estimated peak PA systolic pressure 21 mmHg. There is trace tricuspid regurgitation. suboptimal study. Hx of Present Illness This is a 28-year-old female with comorbidities including morbid obesity with a BMI of almost 68, obstructive sleep apnea, and chronic hypoxia on home O2, who came to the emergency room with a chief complaint of dyspnea, congestion, fevers, cough, and body aches, who was found to have leukocytosis, febrile illn ess, and bandemia, who was admitted to inpatient setting for further treatment and evaluation. Hospital Course The patient was treated for underlying pneumonia. The patient had evidence of sepsis with leukocytosis, febrile illness, and bandemia present on admission. The patient's chest x-ray was showing bibasilar infiltrates concerning for pneumonia. The patient also had evidence of underlying hypoxia. The patient has history of hypoxic respiratory failure and she uses home oxygen. Hypoxia is most probably secondary to morbid obesity hypoventilation. The patient's oxygen demands increased during the hospital course. On 07/08/2018, the patient's condition deteriorated with worsening CO2 retention and the patient became lethargic. The patient had underlying respiratory acidosis with a PCO2 level of more than 100 that necessitated transferring the patient to the intensive care unit on 07/07/2018. The patient was already on noninvasive positive pressure ventilation therapy on telemetry floor on 07/07/2018. Despite noninvasive positive pressure ventilation therapy the patient's CO2 retention got worse and so the patient was transferred to intensive care unit for oral intubation and mechanical ventilation. Once the ER physician walked into the patient's room and was getting ready for intubation, the patient woke up and she refused oral intubation and mechanical ventilation. The patient's sister Shira was called and Shira came and talked to the patient. The patient finally agreed on using noninvasive positive pressure ventilation for 2 more hours and if further blood gases get worse agreed on the patient. Fortunately, the patient's blood gases improved with further noninvasive positive pressure ventilation and did not require any oral intubation. Etiology of the patient's worsening respiratory failure is from underlying pneumonia which was classified as healthcare associated since the patient was frequently visiting her mother who was in a healthcare facility. The patient was initially maintained on carbapenems along with Zithromax and vancomycin. Infectious disease consult was obtained on 07/08/2018 and the rest of the antibiotic management was as per infectious diseases. A pulmonology consult was also obtained on 07/07/2018. The patient had evidence of bilateral hearing loss, possibly multifactorial including underlying cerumen in bilateral ears that was evident on otoscopic examination as well as use of antibiotics. Therefore, ototoxic antibiotics were discontinued. The patient was maintained on carbamide eardrops to bilateral ears with improvement in the patient's hearing acuity. The patient also had e vidence of diastolic heart failure. Therefore, the patient was provided with spot diuretics. The patient was moved out of the intensive care unit on 07/08/2018 and the patient was gradually weaned off noninvasive positive pressure ventilation. The patient was maintained on inhaled bronchodilators and nocturnal CPAP. The patient is morbidly obese with a BMI of almost 68 kg/m. The patient was maintained on on a low-calorie diet and was advised on weight reduction. The patient was initially maintained on therapeutic dose of Lovenox for any possible underlying thromboembolism. However, after discussion with the hot dog vendor, this was discontinued as the patient's hypoxia was a mostly related to her underlying sepsis. The patient could not undergo a CT pulmonary angiogram or a lung VQ scan because of morbid obesity. Nevertheless, the patient underwent a venous Doppler study of bilateral upper and bilateral lower extremities that was negative for any DVT. The patient had a relatively long hospital course because of the slow improvement in the patient's clinical condition, the need for intensive care unit stay, and the need to coordinate care between multiple consultants. Discharge Instructions 1. Complete the course of antibiotics. 2. Resume activities as tolerated. 3. Use nocturnal CPAP as instructed. 4. Take a regular, preferably low-cholesterol, low-calorie diet. 5. Please go to the nearest emergency room if you have persistent fevers, shortness of breath, or any other unusual signs/symptoms. 6. Follow-up with your primary care physician 1 week. If you do not have a primary care physician, please call Dr. Jean-Paul Gagnon's office. The patient verbalized understanding of her discharge instructions. At this time I would like to thank all the consultants for seeing the patient and providing clinical recommendations. The patient was seen in collaboration with Dr. Oconnor. Home Meds Active Scripts Albuterol Sulfate* (Proair HFA*) 8.5 Gm Hfa.aer.ad, 2 PUFF INH Q6H PRN for WHEEZING AND SOB, #1 INHALER Prov:KAREN KIMBALL NP 07/11/18 Cefpodoxime Proxetil* (Cefpodoxime Proxetil*) 200 Mg Tablet, 200 MG PO BID, #9 TAB Prov:KAREN KIMBALL NP 07/11/18 Follow-up Plan Jean-Paul Gagnon MD Specialty: Internal Medicine Office Address: [address] [place] [address] Office Primary Care Provider Lacy Encinas MD Time spent on discharge: > 30 minutes Pending Labs Laboratory Tests Test 07/11/18 04:55 White Blood Count 10.8 10^3/ul (4.8-10.8) Red Blood Count 4.95 10^6/ul (4.20-5.40) Hemoglobin 13.1 g/dl (12.0-16.0) Hematocrit 42.5 % (37.0-47.0) Mean Corpuscular Volume 85.9 fl (82.0-101.0) Mean Corpuscular Hemoglobin 26.5 pg (29.0-33.0) Mean Corpuscular Hemoglobin Concent 30.8 g/dl (32.0-37.0) Red Cell Distribution Width 13.3 % (11.5-14.5) Platelet Count 243 10^3/UL (140-415) Mean Platelet Volume 10.4 fl (7.4-10.4) Immature Granulocytes % 4.300 % (0.001-0.429) Neutrophils % 71.1 % (39.0-77.0) Lymphocytes % 15.2 % (15.0-51.0) Monocytes % 7.0 % (0.0-11.0) Eosinophils % 1.8 % (0.0-7.0) Basophils % 0.6 % (0.0-2.0) Nucleated Red Blood Cells % 0.0 /100WBC (0.0-0.0) Immature Granulocytes # 0.470 10^3/ul (0.0-0.031) Neutrophils # 7.7 10^3/ul (1.6-7.5) Lymphocytes # 1.7 10^3/ul (0.8-2.9) Monocytes # 0.8 10^3/ul (0.3-0.9) Eosinophils # 0.2 10^3/ul (0.0-0.5) Basophils # 0.1 10^3/ul (0.0-0.1) Nucleated Red Blood Cells # 0.0 10^3/ul (0.0-0.0) Sodium Level 141 mmol/L (135-144) Potassium Level 4.9 mmol/L (3.5-5.1) Chloride Level 95 mmol/L (97-110) Carbon Dioxide Level 40 mmol/L (21-31) Anion Gap 6 (5-13) Blood Urea Nitrogen 12 mg/dl (7-20) Creatinine 0.41 mg/dl (0.44-1.00) Est Glomerular Filtrat Rate mL/min > 60 mL/min (>60) Glucose Level 99 mg/dl (70-220) Calcium Level 8.7 mg/dl (8.4-10.2) Phosphorus Level 6.4 mg/dl (2.5-4.9) Magnesium Level 1.9 mg/dl (1.7-2.5) KAREN KIMBALL NP Jul 11, 2018 17:16
--- NOTE | 2018-07-11 18:41 | NUR ---
Discharge pt is alert and orientedx4, stable discharge instructions given to the pt pt verbalizes understanding of discharge instructions prescriptions given to the pt all belongings kept with pt iv d/c tele box off
== END 2018-07-11 18:34 | disposition home or self-care (01) | DRG 871 ==
LOC: E/R 19:22 → TEL 21:10 → ICU 07-07 13:55 → 6WM 07-08 17:55
PROVIDERS: ADMIT Internal Medicine; ATTEND Internal Medicine
DX: A41.9 Sepsis, unspecified organism (principal); J18.9 Pneumonia, unspecified organism; J96.22 Acute and chronic respiratory failure with hypercapnia; J96.21 Acute and chronic respiratory failure with hypoxia; Z68.44 Body mass index [BMI] 60.0-69.9, adult; I50.30 Unspecified diastolic (congestive) heart failure; B37.0 Candidal stomatitis; E66.01 Morbid (severe) obesity due to excess calories; I11.0 Hypertensive heart disease with heart failure; G47.33 Obstructive sleep apnea (adult) (pediatric); I83.91 Asymptomatic varicose veins of right lower extremity; H61.23 Impacted cerumen, bilateral; J20.9 Acute bronchitis, unspecified
CPT/HCPCS: 36415; 36600; 70220; 71045; 80048; 80053; 80202; 81001; 82803; 82962; 83036; 83605; 83690; 83735; 83880; 84100; 84145; 84443; 84484; 84703; 85025; 85378; 85610; 85730; 87040; 87081; 87086; 87275; 87276; 87279; 87280; 87400; 93005; 93306; 93970; 94640; 94644; 94660; 94664; J0456; J0696; J1940; J2185; J2310; J2405; J3370; J3475; J7030; J7040; J7050; J7070